=== PATIENT | female | born 2000 | race Caucasian/White ===

== ENCOUNTER → 2018-11-27 14:38 | Outpatient (CLI) | payer BC, SELFPAY ==
[2018-11-27 15:53] LABS: Basophils % 0.6 % (0.1-2.0); Eosinophils # 0.1 K/mm3 (0.0-0.4); Eosinophils % 0.8 % (0.1-12.0); Hematocrit 42.1 % (37.0-47.0); Hemoglobin 14.7 g/dL (12.2-16.2); Lymphocytes % 25.1 % (10-50); Mean Corpuscular HGB Conc 34.8 g/dL (31.8-35.4); Mean Platelet Volume 8.9 fl (7.4-10.4); Monocytes # 0.4 K/mm3 (0.1-1.0); Monocytes % 5.3 % (1.7-9.3); Neutrophils # 5.3 K/mm3 (1.8-7.8); Neutrophils % 68.2 % (37.0-80.0); Platelet Count 282 K/mm3 (142-424); Red Blood Count 4.73 M/mm3 (4.20-5.40); Red Cell Distribution Width 12.6 % (11.5-17.5); White Blood Count 7.8 K/mm3 (4.5-13.0)
[2018-11-29 06:22] LABS: Prolactin 9.4 ng/mL (4.8-23.3)
[2018-11-29 11:02] LABS: Estradiol 47.5 pg/mL (.); FSH 8.8 mIU/mL (.); LH 11.7 mIU/mL (.)
[2018-12-01 14:16] LABS: Testosterone,Free 5.8 pg/mL (0.0-4.2)
== END ==
PROVIDERS: Visit Provider Obstetrics & Gynecology
DX: N91.2 Amenorrhea, unspecified (principal)
CPT/HCPCS: 36415; 82670; 83001; 83002; 84146; 84402; 84443; 85025

== ENCOUNTER → 2018-12-01 14:54 | Outpatient (CLI) | payer OTHER, SELFPAY ==
--- NOTE | 2018-12-01 15:01 | US_ITS ---
US transvaginal HISTORY: ITS.REASON: INFERTILITY ORDERING PHYSICIAN: Fito Leahy MD PATIENT AGE: 18 years Comparison: None FINDINGS: The uterus is 7.4 x 3 x 3.4 cm with a combined endometrial thickness of 7 mm. Uterus is slightly anteverted. No uterine mass is evident. The right ovary is 3 x 2 cm and contains small follicles without dominant cyst. At least 10 follicles are present in one image The left ovary is not well visualized. What appears to represent the left ovary is 1.5 x 1.5 cm and contains 2 small follicles. No cul-de-sac fluid evident. IMPRESSION: 1. Unremarkable. Anteverted uterus. 2. Multiple right ovarian follicles. In the absence of hormonal stimulation, polycystic ovarian disease is considered. Please correlate with appropriate laboratory values. The left ovary is not well demonstrated.
== END ==
PROVIDERS: PCP Family Medicine; Visit Provider Obstetrics & Gynecology
DX: N91.2 Amenorrhea, unspecified (principal)
CPT/HCPCS: 76830

== ENCOUNTER 2019-03-05 16:05 | Emergency (ER) | payer OTHER, MEDICAID, SELFPAY ==
[2019-03-05 16:23] VITALS: BP 174/98; PULSE 101; RESP 20; TEMP 36.7; O2SAT 98; BMI 31.8
[2019-03-05 16:38] VITALS: BP 158/76; PULSE 89; RESP 18; TEMP 36.6; O2SAT 100; BMI 27.8
--- NOTE | 2019-03-05 16:46 | US_ITS ---
US OB transvaginal CLINICAL INDICATION: ITS.REASON: CRAMPING , PT ON CLOMID FOR INFERTILITY, RO ECTOPIC ORDERING PHYSICIAN: Gerald Hutton MD PATIENT AGE: 19 years Comparison: None FINDINGS: There is a need uterine gestational sac with a pole with a crown-rump length of 0.52 cm correlating to gestational age of 6 weeks and 2 days. Heart tones are present with an FHR 1:30 BPM. Yolk sac is visualized. 13 mm right ovarian cyst. No cul-de-sac fluid. Cervix appears closed. IMPRESSION: Live intrauterine gestation at 6 weeks and 2 days. Estimated due date by ultrasound is 10/26/2019
[2019-03-05 16:59] LABS: Basophils # 0.1 K/mm3 (0-0.2); Basophils % 0.8 % (0.1-2.0); Eosinophils % 0.5 % (0.1-12.0); Hematocrit 39.2 % (37.0-47.0); Hemoglobin 13.8 g/dL (12.2-16.2); Lymphocytes # 1.8 K/mm3 (0.7-4.5); Lymphocytes % 23.9 % (10-50); Mean Corpuscular HGB Conc 35.1 g/dL (31.8-35.4); Mean Corpuscular Hemoglobin 30.6 pg (27.0-31.2); Mean Corpuscular Volume 87.2 fl (81-99); Mean Platelet Volume 7.8 fl (7.4-10.4); Monocytes # 0.5 K/mm3 (0.1-1.0); Monocytes % 6.4 % (1.7-9.3); Neutrophils # 5.2 K/mm3 (1.8-7.8); Neutrophils % 68.4 % (37.0-80.0); Platelet Count 274 K/mm3 (142-424); Red Blood Count 4.49 M/mm3 (4.20-5.40); Red Cell Distribution Width 12.4 % (11.5-17.5); White Blood Count 7.6 K/mm3 (4.8-10.8)
--- NOTE | 2019-03-05 17:06 | [facility].EDGENADL ---
ED Disposition Clinical Impression: Normal IUP (intrauterine ) on ultrasound Disposition: Home, Self-Care Condition on Discharge: Good Instructions: DI for Abdominal Pain -- Early Additional Instructions: follow up with dr. scherer Referrals: Provider,Referral, [Primary Care Provider] - Time of Disposition: 18:54 - Critical Care Critical Care Time: No Attestation: On 03/05/19, the high probability of a clinically significant, sudden or life threatening deterioration of the following system(s) required my full and direct attention, intervention and personal management. The time I documented below is in addition to time spent performing reported procedures but includes the following listed in this critical care notation. Medical Decision Making - Medical Records Medical records reviewed: Yes: I reviewed the patient's medical records. - Neymar Inquiry Pt receiving controlled substance: No Neymar was queried for this patient: No Vital Signs: 03/05/19 16:23 03/05/19 16:38 03/05/19 17:34 Temperature 98.1 F 97.8 F Temperature Source Oral Oral Pulse Rate [Right Radial] 101 H 89 91 H Respiratory Rate 20 18 Blood Pressure [Right Arm] 174/98 H 158/76 H 130/79 Blood Pressure Mean [Right Arm] 123 103 96 Blood Pressure Source [Right Arm] Automatic Cuff Automatic Cuff Blood Pressure Position [Right Arm] Sitting Sitting 02 Sat by Pulse Oximetry 98 100 98 Oxygen Delivery Method Room Air Room Air - Lab Data Lab results reviewed: Yes: I reviewed the patient's lab results. Lab Results 03/05/19 16:50: WBC 7.6, RBC 4.49, Hgb 13.8, Hct 39.2, MCV 87.2, MCH 30.6, MCHC 35.1, RDW 12.4, Plt Count 274, MPV 7.8, Neut % (Auto) 68.4, Lymph % (Auto) 23.9, [place] % (Auto) 6.4, Eos % (Auto) 0.5, Baso % (Auto) 0.8, Neut # (Auto) 5.2, Lymph # (Auto) 1.8, [place] # (Auto) 0.5, Eos # (Auto) 0.0, Baso # (Auto) 0.1 03/05/19 16:50: Sodium 139, Potassium 3.6, Chloride 103, Carbon Dioxide 25, Anion Gap 14.6, BUN 7, Creatinine 0.73, Estimated Creat Clear 165, Estimated GFR 101, Est GFR ( Amer) 122, Glucose 96, Calcium 8.7, Total Bilirubin 0.2, AST 12 L, ALT 24, Alkaline Phosphatase 67, Total Protein 7.4, Albumin 3.8, Globulin 3.6 H, Albumin/Globulin Ratio 1.1, HCG, Quant [id number] H 03/05/19 16:50: Serum HCG, Qual Positive Result diagrams: 03/05/19 16:50 03/05/19 16:50 Orders (Tests/Meds): ORDERS Category Date Time Status US OB transvaginal Stat Ultrasound 03/05/19 16:46 Taken General Adult HPI - General Chief complaint: PAIN Stated complaint: and cramping Time Seen by Provider: 03/05/19 17:06 Mode of Arrival: Ambulatory Source of Information: Patient Limitations: No Limitations Description of Symptoms (Recalled from ER Triage Doc. by RN): abd cramping, approx 6 weeks preg after having taken clomid - Related Data Home Medications Medication Instructions Recorded Confirmed norethindrone 1 mg-ethinyl 1 tab PO DAILY 11/27/18 12/08/18 estradiol 20 mcg (21)-iron 75 mg (7) tablet Previous Rx's Medication Instructions Recorded clomiphene citrate 50 mg tablet 50 mg PO DAILY 5 Days #5 tab 12/08/18 Allergies Allergy/AdvReac Type Severity Reaction Status Date / Time No Known Allergies Allergy Unverified 12/08/18 15:36 [facility] History - Hepatitis A Screen Drug use history?: No High risk sexual behaviors?: No History of sexually transmitted infection?: No Currently employed?: No Childcare worker?: No Do you have indoor plumbing?: Yes Do you have electricity?: Yes Attestation statement:: This patient has been screened for Hepatitis A risk factors. I have reviewed the patient's past medical history: Yes Comment: HBP Amputation: No Fractures: No - Social History Smoking Status: Never smoker Alcohol Intake: never Alcohol Intake Frequency:: other Substance Use Type: denies use Occupational Status: unemployed - Psychiatric History Expresses thoughts
[2019-03-05 17:14] LABS: HCG Qualitative, Serum Positive (Negative)
--- NOTE | 2019-03-05 17:16 | ED_ITS ---
ED Disposition Clinical Impression: Normal IUP (intrauterine ) on ultrasound Disposition: Home, Self-Care Condition on Discharge: Good Instructions: DI for Abdominal Pain -- Early Additional Instructions: follow up with dr. scherer Referrals: Provider,Referral, [Primary Care Provider] - Time of Disposition: 18:54 - Critical Care Critical Care Time: No Attestation: On 03/05/19, the high probability of a clinically significant, sudden or life threatening deterioration of the following system(s) required my full and direct attention, intervention and personal management. The time I documented below is in addition to time spent performing reported procedures but includes the following listed in this critical care notation. Medical Decision Making - Medical Records Medical records reviewed: Yes: I reviewed the patient's medical records. - Neymar Inquiry Pt receiving controlled substance: No Neymar was queried for this patient: No Vital Signs: 03/05/19 16:23 03/05/19 16:38 03/05/19 17:34 Temperature 98.1 F 97.8 F Temperature Source Oral Oral Pulse Rate [Right Radial] 101 H 89 91 H Respiratory Rate 20 18 Blood Pressure [Right Arm] 174/98 H 158/76 H 130/79 Blood Pressure Mean [Right Arm] 123 103 96 Blood Pressure Source [Right Arm] Automatic Cuff Automatic Cuff Blood Pressure Position [Right Arm] Sitting Sitting 02 Sat by Pulse Oximetry 98 100 98 Oxygen Delivery Method Room Air Room Air - Lab Data Lab results reviewed: Yes: I reviewed the patient's lab results. Lab Results 03/05/19 16:50: WBC 7.6, RBC 4.49, Hgb 13.8, Hct 39.2, MCV 87.2, MCH 30.6, MCHC 35.1, RDW 12.4, Plt Count 274, MPV 7.8, Neut % (Auto) 68.4, Lymph % (Auto) 23.9, [place] % (Auto) 6.4, Eos % (Auto) 0.5, Baso % (Auto) 0.8, Neut # (Auto) 5.2, Lymph # (Auto) 1.8, [place] # (Auto) 0.5, Eos # (Auto) 0.0, Baso # (Auto) 0.1 03/05/19 16:50: Sodium 139, Potassium 3.6, Chloride 103, Carbon Dioxide 25, Anion Gap 14.6, BUN 7, Creatinine 0.73, Estimated Creat Clear 165, Estimated GFR 101, Est GFR ( Amer) 122, Glucose 96, Calcium 8.7, Total Bilirubin 0.2, AST 12 L, ALT 24, Alkaline Phosphatase 67, Total Protein 7.4, Albumin 3.8, Globulin 3.6 H, Albumin/Globulin Ratio 1.1, HCG, Quant [id number] H 03/05/19 16:50: Serum HCG, Qual Positive Result diagrams: 03/05/19 16:50 03/05/19 16:50 Orders (Tests/Meds): ORDERS Category Date Time Status US OB transvaginal Stat Ultrasound 03/05/19 16:46 Taken General Adult HPI - General Chief complaint: PAIN Stated complaint: and cramping Time Seen by Provider: 03/05/19 17:06 Mode of Arrival: Ambulatory Source of Information: Patient Limitations: No Limitations Description of Symptoms (Recalled from ER Triage Doc. by RN): abd cramping, approx 6 weeks preg after having taken clomid - Related Data Home Medications Medication Instructions Recorded Confirmed norethindrone 1 mg-ethinyl 1 tab PO DAILY 11/27/18 12/08/18 estradiol 20 mcg (21)-iron 75 mg (7) tablet Previous Rx's Medication Instructions Recorded clomiphene citrate 50 mg tablet 50 mg PO DAILY
[2019-03-05 17:34] VITALS: BP 130/79; PULSE 91; O2SAT 98
[2019-03-05 17:35] LABS: Alanine Aminotransferase 24 U/L (12-78); Albumin Level 3.8 gm/dL (3.4-5.0); Albumin/Globulin Ratio 1.1 (1.1-1.8); Alkaline Phosphatase 67 U/L (46-116); Anion Gap 14.6 mEq/L (5-15); Aspartate Amino Transferase 12 U/L (15-37); Bilirubin,Total 0.2 mg/dL (0.2-1.0); Blood Urea Nitrogen 7 mg/dL (7-18); Calcium 8.7 mg/dL (8.5-10.1); Carbon Dioxide 25 mmol/L (21.0-32.0); Chloride 103 mmol/L (98-107); Creatinine Clearance Estimated 165 mL/min (50-200); Creatinine,Serum 0.73 mg/dL (0.55-1.02); Estimated Glomerular Filt Rate 101 ml/min (>60); GFR (African American) 122 ML/MIN (>60); Globulin 3.6 gm/dl (1.3-3.2); Glucose 96 mg/dL (74-106); Potassium 3.6 mmoL/L (3.5-5.1); Sodium 139 mmol/L (136-145); Total Protein,Serum 7.4 gm/dL (6.4-8.2)
[2019-03-05 19:10] VITALS: BP 135/85; PULSE 90; RESP 20; TEMP 37; O2SAT 98
== END 2019-03-05 19:11 | disposition home or self-care (01) ==
LOC: UTC 16:27 → ER 16:33
PROVIDERS: Emergency Provider Emergency Medicine
DX: R10.9 Unspecified abdominal pain (principal); Z34.90 Encounter for supervision of normal pregnancy, unspecified, unspecified trimester
CPT/HCPCS: 36415; 76817; 80053; 84702; 84703; 85025; 99283

== ENCOUNTER → 2019-03-17 15:45 | Outpatient (CLI) | payer BC, MEDICAID, SELFPAY ==
[2019-03-17 16:31] LABS: Amphetamine/Metha Screen,Urine Negative ng/mL (<1000); Barbiturates Screen,Urine Negative ng/mL (<200); Benzodiazepines Screen,Urine Negative ng/mL (<200); Cannabinoid Screen,Urine Negative ng/mL (<50); Cocaine Screen,Urine Negative ng/mL (<300); Methadone Screen,Urine Negative ng/mL (<300); Opiate Screen,Urine Negative ng/mL (<300); Phencyclidine Screen,Urine Negative ng/mL (<25)
[2019-03-17 18:06] LABS: Thyroid Stimulating Hormone 1.33 uIU/ml (0.358-3.740)
[2019-03-20 17:47] LABS: HIV Screen 4th Generation wRfx Non Reactive (Non Reactive); Hepatitis B Surface Antigen Negative (Negative); Hepatitis C Antibody <0.1 s/co ratio (0.0-0.9); Rapid Plasma Reagin Ab Titer Non Reactive (NonRea<1:1); Rubella Antibodies, IgG 1.95 index (Immune >0.99)
== END ==
PROVIDERS: Visit Provider Obstetrics & Gynecology
DX: Z34.90 Encounter for supervision of normal pregnancy, unspecified, unspecified trimester (principal)
CPT/HCPCS: 36415; 80305; 84443; 86592; 86703; 86762; 86850; 87340; 87380; G0432

== ENCOUNTER → 2019-05-19 16:28 | Outpatient (CLI) | payer OTHER, MEDICAID, SELFPAY ==
[2019-05-22 02:16] LABS: AFP Value 36.4 ng/mL (.); DIA MoM 1.04 (.); DIA Value 155.26 pg/mL (.); DSR (Second Trimester) 1 IN 8302 (.); Maternal Age At EDD 21.6 yr (.); OSBR Risk 1 IN 7850 (.); Results Report (.); hCG MoM 0.98 (.); hCG Value 28818 mIU/mL (.); uE3 MoM 1.03 (.)
[2019-05-22 18:03] LABS: Gestat. Age Based On EDD (.)
== END ==
PROVIDERS: Visit Provider Obstetrics & Gynecology
DX: Z34.90 Encounter for supervision of normal pregnancy, unspecified, unspecified trimester (principal)
CPT/HCPCS: 36415; 82106

== ENCOUNTER 2019-07-23 08:50 | Outpatient (CLI) | payer MEDICAID, SELFPAY ==
[2019-07-23 08:59] VITALS: BMI 29.3
[2019-07-23 09:10] VITALS: BP 147/87; PULSE 91; RESP 20; TEMP 36.9; O2SAT 96; BMI 29.3
[2019-07-23 09:49] LABS: Amphetamine/Metha Screen,Urine Negative ng/mL (<1000); Barbiturates Screen,Urine Negative ng/mL (<200); Benzodiazepines Screen,Urine Negative ng/mL (<200); Cannabinoid Screen,Urine Negative ng/mL (<50); Cocaine Screen,Urine Negative ng/mL (<300); Methadone Screen,Urine Negative ng/mL (<300); Opiate Screen,Urine Negative ng/mL (<300); Phencyclidine Screen,Urine Negative ng/mL (<25)
[2019-07-23 10:13] LABS: Appearance,Urine CLEAR (Clear); Blood, Urine Negative (Negative); Color,Urine YELLOW (Yellow); Glucose,Urine (UA) Negative (Negative); Ketones,Urine 2+ (Negative); Leukocyte Esterase,Urine Negative (Negative); Microscopic, Urine URINE MICROSCOPIC (MICROSCOPIC); Nitrate,Urine Negative (Negative); Protein,Urine Negative (Negative); Specific Gravity, Urine 1.025 (1.005-1.030); Urobilinogen,Urine 0.2 EU/dl (0.2)
[2019-07-23 10:21] LABS: Bilirubin,Urine Negative (Negative)
[2019-07-23 10:23] LABS: Bacteria,Urine 2+ /lpf
--- NOTE | 2019-07-23 10:23 | US_ITS ---
PROCEDURE: US OB BIOPHYSICAL PROFILE CLINICAL INDICATION: pt fell down steps this am Patient fell down steps, evaluate viability, abdominal injury with pain TECHNIQUE: Transabdominal images FINDINGS: There is a single live fetus which is in cephalic presentation. heart and body motion noted. Placenta is anterior without previa or abruption. Biophysical profile is 8 of 8. Biometric measurements were not obtained. Heart rate is 153 beats per minute. Qualitative AFV: 2 breathing movements: 2 Gross body movements: 2 Tone: 2 Biophysical profile score: 8 IMPRESSION: Live intrauterine gestation in cephalic presentation with a biophysical profile 8 of 8 Dictated by: Sam Lorenzo MD 07/23/2019 18:30 Electronically signed by Sam Lorenzo MD in [place] 07/23/2019 18:30
== END 2019-07-23 11:25 | disposition home or self-care (01) ==
LOC: OBOUT 08:52 → OB 08:58
PROVIDERS: Visit Provider Obstetrics & Gynecology
DX: O26.892 Other specified pregnancy related conditions, second trimester (principal); Z3A.26 26 weeks gestation of pregnancy; W19.XXXA Unspecified fall, initial encounter
CPT/HCPCS: 59025; 76819; 80305; 81001; 87086

== ENCOUNTER → 2019-08-14 13:22 | Outpatient (CLI) | payer MEDICAID, SELFPAY ==
[2019-08-14 13:49] LABS: Glucose,Fasting 79 mg/dL (60-105)
--- NOTE | 2019-08-14 13:58 | US_ITS ---
PROCEDURE: US OB /MATERNAL DETAIL CLINICAL INDICATION: us ob Complete COMPARISON: US OB BIOPHYSICAL PROFILE from 07/23/2019 FINDINGS: Single viable intrauterine gestation. Cephalic position. Placenta: Anteriorplacenta grade 1. There is average amount fluid. The cervix appears satisfactory. Closed and measuring 3.4 cm in length. Complete survey performed and was unremarkable on the submitted images as in PACS. No discrete anomalies identified on survey imaging by technologist. Active fetus. Three-vessel cord with satisfactory umbilical cord insertion. 4- chamber heart noted. Survey of brain & ventricles Unremarkable. Face and neck survey unremarkable. Diaphragm and chest views unremarkable. Abdomen: Both kidneys noted and unremarkable. Stomach noted and satisfactory. Urinary bladder is slightly prominent. This is nonspecific and could be due to patient's phase of imaging Spine: Survey of the spine satisfactory with no anomalies identified nor imaged. Both arms and legs noted. Amniotic Fluid: Adequate. Maternal adnexa: No significant findings. Measurements: Average ultrasound age 29 weeks 5 days. Gestational Age 29 weeks 3 days Estimated due date by ultrasound age 0110/25/2019. Estimated weight 1,423.2 ggrams. BPD = 29 weeks 5 days OFD = 29 weeks 4 days HC = 29 weeks 4 days AC = 29 weeks 5 days FL = 29 weeks 4 days Growth Percentile= 43% Heart Rate = 176 bpm Cerebellum = Humerus = HC/AC is 1.06 CI is 0.77 FL/BPD is 0.76 FL/AC is 0.22 IMPRESSION: Live IUP at 29 weeks 5 days which is in cephalic presentation. All parameters correlate with no obvious anomalies. Please see above for detail Dictated by: Sam Lorenzo MD 08/14/2019 16:39 Electronically signed by Sam Lorenzo MD in [place] 08/14/2019 16:39
[2019-08-14 14:55] LABS: Basophils % 0.3 % (0.1-2.0); Eosinophils # 0.1 K/mm3 (0.0-0.4); Eosinophils % 0.6 % (0.1-12.0); Hematocrit 40.3 % (37.0-47.0); Hemoglobin 13.7 g/dL (12.2-16.2); Lymphocytes # 1.6 K/mm3 (0.7-4.5); Lymphocytes % 13.9 % (10-50); Mean Corpuscular Hemoglobin 31.7 pg (27.0-31.2); Mean Corpuscular Volume 93.3 fl (81-99); Mean Platelet Volume 8.3 fl (7.4-10.4); Monocytes # 0.5 K/mm3 (0.1-1.0); Monocytes % 4.4 % (1.7-9.3); Neutrophils # 9.3 K/mm3 (1.8-7.8); Neutrophils % 80.9 % (37.0-80.0); Platelet Count 214 K/mm3 (142-424); Red Blood Count 4.32 M/mm3 (4.20-5.40); Red Cell Distribution Width 13.2 % (11.5-17.5); White Blood Count 11.4 K/mm3 (4.8-10.8)
[2019-08-14 15:04] LABS: Glucose 1 Hour 142 mg/dL (74-106)
== END ==
PROVIDERS: Referring Provider Obstetrics & Gynecology; Visit Provider Obstetrics & Gynecology
DX: Z36.0 Encounter for antenatal screening for chromosomal anomalies (principal)
CPT/HCPCS: 36415; 76811; 82951; 85025

== ENCOUNTER 2019-09-21 07:32 | Outpatient (CLI) | payer MEDICAID, SELFPAY ==
[2019-09-21 07:37] VITALS: BP 137/82; PULSE 89; RESP 20; TEMP 36.9; O2SAT 97; BMI 31.0
[2019-09-21 07:52] LABS: Microscopic, Urine URINE MICROSCOPIC (MICROSCOPIC)
[2019-09-21 07:57] LABS: Appearance,Urine CLEAR (Clear); Bilirubin,Urine Negative (Negative); Blood, Urine Negative (Negative); Color,Urine YELLOW (Yellow); Glucose,Urine (UA) Negative (Negative); Ketones,Urine Negative (Negative); Leukocyte Esterase,Urine TRACE (Negative); Nitrate,Urine Negative (Negative); PH,Urine 6.5 (5.0-8.5); Protein,Urine Negative (Negative); Urobilinogen,Urine 0.2 EU/dl (0.2)
[2019-09-21 08:03] LABS: Bacteria,Urine Trace /lpf; RBC,Urine Occasional #/hpf (0-3)
[2019-09-21 08:10] LABS: Amphetamine/Metha Screen,Urine Negative ng/mL (<1000); Barbiturates Screen,Urine Negative ng/mL (<200); Benzodiazepines Screen,Urine Negative ng/mL (<200); Cannabinoid Screen,Urine Negative ng/mL (<50); Cocaine Screen,Urine Negative ng/mL (<300); Methadone Screen,Urine Negative ng/mL (<300); Opiate Screen,Urine Negative ng/mL (<300); Phencyclidine Screen,Urine Negative ng/mL (<25)
== END 2019-09-21 08:35 | disposition home or self-care (01) ==
LOC: OBOUT 07:36 → OB 07:36
PROVIDERS: Obstetrics & Gynecology; Visit Provider Obstetrics & Gynecology
DX: O47.03 False labor before 37 completed weeks of gestation, third trimester (principal); Z3A.34 34 weeks gestation of pregnancy; O36.8190 Decreased fetal movements, unspecified trimester, not applicable or unspecified; R10.2 Pelvic and perineal pain
CPT/HCPCS: 59025; 80305; 81001

== ENCOUNTER 2019-09-28 15:35 | Outpatient (CLI) | payer MEDICAID, SELFPAY ==
[2019-09-28 15:53] VITALS: BP 136/92; PULSE 99; RESP 18; BMI 31.0
[2019-09-28 16:22] LABS: Microscopic, Urine URINE MICROSCOPIC (MICROSCOPIC)
[2019-09-28 16:29] LABS: Appearance,Urine CLEAR (Clear); Bilirubin,Urine Negative (Negative); Blood, Urine Negative (Negative); Color,Urine YELLOW (Yellow); Glucose,Urine (UA) Negative (Negative); Ketones,Urine Negative (Negative); Leukocyte Esterase,Urine Negative (Negative); Nitrate,Urine Negative (Negative); Protein,Urine Negative (Negative); Specific Gravity, Urine 1.025 (1.005-1.030); Urobilinogen,Urine 0.2 EU/dl (0.2)
[2019-09-28 16:37] LABS: Amphetamine/Metha Screen,Urine Negative ng/mL (<1000); Barbiturates Screen,Urine Negative ng/mL (<200); Benzodiazepines Screen,Urine Negative ng/mL (<200); Cannabinoid Screen,Urine Negative ng/mL (<50); Cocaine Screen,Urine Negative ng/mL (<300); Methadone Screen,Urine Negative ng/mL (<300); Opiate Screen,Urine Negative ng/mL (<300); Phencyclidine Screen,Urine Negative ng/mL (<25)
[2019-09-28 16:58] LABS: Bacteria,Urine Trace /lpf; WBC,Urine Occasional #/hpf (0-3)
== END 2019-09-28 16:50 | disposition home or self-care (01) ==
LOC: OBOUT 15:38 → OB 15:39
PROVIDERS: PCP Obstetrics & Gynecology; Visit Provider Obstetrics & Gynecology
DX: O13.3 Gestational [pregnancy-induced] hypertension without significant proteinuria, third trimester; Z3A.35 35 weeks gestation of pregnancy
CPT/HCPCS: 59025; 80305; 81001

== ENCOUNTER 2019-09-30 13:35 | Inpatient (IN) ==
[2019-09-30 14:09] LABS: Microscopic, Urine URINE MICROSCOPIC (MICROSCOPIC)
[2019-09-30 14:20] LABS: Appearance,Urine CLEAR (Clear); Blood, Urine Negative (Negative); Glucose,Urine (UA) Negative (Negative); Ketones,Urine TRACE (Negative); Leukocyte Esterase,Urine TRACE (Negative); Protein,Urine TRACE (Negative)
[2019-09-30 14:23] LABS: Amphetamine/Metha Screen,Urine Negative ng/mL (<1000); Barbiturates Screen,Urine Negative ng/mL (<200); Benzodiazepines Screen,Urine Negative ng/mL (<200); Cannabinoid Screen,Urine Negative ng/mL (<50); Cocaine Screen,Urine Negative ng/mL (<300); Methadone Screen,Urine Negative ng/mL (<300); Opiate Screen,Urine Negative ng/mL (<300); Phencyclidine Screen,Urine Negative ng/mL (<25)
[2019-09-30 14:29] LABS: Bilirubin,Urine Negative (Negative); Color,Urine Dark Yellow (Yellow)
[2019-09-30 14:30] LABS: Bacteria,Urine 2+ /lpf; Hyaline Casts,Urine Occasional #/lpf (0); Mucus,Urine 1+ /lpf
[2019-09-30 15:09] LABS: Basophils % 0.2 % (0.1-2.0); Eosinophils % 0.3 % (0.1-12.0); Hematocrit 40.7 % (37.0-47.0); Lymphocytes # 1.1 K/mm3 (0.7-4.5); Lymphocytes % 8.7 % (10-50); Mean Corpuscular HGB Conc 34.5 g/dL (31.8-35.4); Mean Corpuscular Volume 90.7 fl (81-99); Mean Platelet Volume 9.7 fl (7.4-10.4); Monocytes # 0.6 K/mm3 (0.1-1.0); Neutrophils # 10.6 K/mm3 (1.8-7.8); Neutrophils % 85.8 % (37.0-80.0); Platelet Count 199 K/mm3 (142-424); Red Blood Count 4.49 M/mm3 (4.20-5.40); Red Cell Distribution Width 12.7 % (11.5-17.5); White Blood Count 12.4 K/mm3 (4.8-10.8)
[2019-09-30 15:53] LABS: Lymphocytes % 9 % (10-50); Monocytes % 5 % (2-9); Neutrophils % 86 % (42-76); RBC Morphology Normal; Total Cells Counted 100
--- NOTE | 2019-09-30 18:35 | Progress Note ---
Internal Medicine - PN: Subj *Date: 09/30/19 *Time: 18:32 (This 19-year-old primigravid white female arrived at 36-1/7 weeks in the labor room with spontaneous rupture of membranes (AmniSure positive). Contractions are sporadic and irregular and mild. Cervix is 1 cm, 50%, with a high presenting vertex. The patient is afebrile. Her has been uncomplicated (a Clomid ). The patient states that her bag of water broke approximately 1300 hrs. today. The plan is to observe the patient on IV fluids and intravenous ampicillin (GBS status unknown), and if labor does not ensue, to start intravenous Pitocin at 04 100 tomorrow. Please refer to the patient's complete obstetrical history.) Exam Vital signs and Labs for Last 24 Hours: Temp Pulse Resp BP Pulse Ox 98.2 F 124 H 18 126/80 95 09/30/19 13:45 09/30/19 13:45 09/30/19 13:45 09/30/19 13:45 09/30/19 13:45 Laboratory Results - last 24 hr 09/30/19 13:45: Urine Color Dark yellow, Urine Appearance Clear, Urine pH 8.0, Ur Specific [place] 1.020, Urine Protein Trace, Urine Glucose (UA) Negative, Urine Ketones Trace, Urine Blood Negative, Urine Nitrate Negative, Urine Bilirubin Negative, Urine Urobilinogen 1.0, Ur Leukocyte Esterase Trace, Urine RBC 5-10, Urine WBC 10-20, Ur Squamous Epith Cells 10-20, Urine Bacteria 2+, Hyaline Casts Occasional, Urine Mucus 1+ 09/30/19 13:45: Urine Opiates Screen Negative, Urine Methadone Screen Negative, Ur Barbituates Screen Negative, Ur Phencyclidine Scrn Negative, Ur Amphetamines Screen Negative, U Benzodiazepines Scrn Negative, Urine Cocaine Screen Negative, U Marijuana (THC) Screen Negative 09/30/19 13:55: Membrane Rupture Positive A 09/30/19 14:55: WBC 12.4 H, RBC 4.49, Hgb 14.0, Hct 40.7, MCV 90.7, MCH 31.3 H, MCHC 34.5, RDW 12.7, Plt Count 199, MPV 9.7, Neut % (Auto) 85.8 H, Lymph % (Auto) 8.7 L, [place] % (Auto) 5.0, Eos % (Auto) 0.3, Baso % (Auto) 0.2, Neut # (Auto) 10.6 H, Lymph # (Auto) 1.1, [place] # (Auto) 0.6, Eos # (Auto) 0.0, Baso # (Auto) 0.0, Total Counted 100, Neutrophils % (Manual) 86 H, Lymphocytes % (Manual) 9 L, Monocytes % (Manual) 5, Platelet Estimate Normal, RBC Morphology Normal 09/30/19 14:55: Blood Type B Positive, Antibody Screen Negative I & O for Last 24 hours: Intake & Output 09/28/19 09/29/19 09/30/19 10/01/19 11:59 11:59 11:59 11:59 Weight 204 lb
--- NOTE | 2019-10-01 07:12 | Progress Note ---
Internal Medicine - PN: Subj *Date: 10/01/19 *Time: 07:11 (The patient experienced minimal contractions, and so intravenous Pitocin was begun at approximately 04 100 today. She now has an epidural in situ, and working well. Cervix is now completely effaced, 4 cm, with the presenting vertex at -2 station. Amniotomy revealed clear fluid and an internal monitor has been placed. Vaginal delivery anticipated.) Exam Vital signs and Labs for Last 24 Hours: Temp Pulse Resp BP Pulse Ox 98.2 F 86 16 121/62 99 09/30/19 23:40 09/30/19 23:40 09/30/19 23:40 09/30/19 23:40 09/30/19 23:40 Laboratory Results - last 24 hr 09/30/19 13:45: Urine Color Dark yellow, Urine Appearance Clear, Urine pH 8.0, Ur Specific [place] 1.020, Urine Protein Trace, Urine Glucose (UA) Negative, Urine Ketones Trace, Urine Blood Negative, Urine Nitrate Negative, Urine Bilirubin Negative, Urine Urobilinogen 1.0, Ur Leukocyte Esterase Trace, Urine RBC 5-10, Urine WBC 10-20, Ur Squamous Epith Cells 10-20, Urine Bacteria 2+, Hyaline Casts Occasional, Urine Mucus 1+ 09/30/19 13:45: Urine Opiates Screen Negative, Urine Methadone Screen Negative, Ur Barbituates Screen Negative, Ur Phencyclidine Scrn Negative, Ur Amphetamines Screen Negative, U Benzodiazepines Scrn Negative, Urine Cocaine Screen Negative, U Marijuana (THC) Screen Negative 09/30/19 13:55: Membrane Rupture Positive A 09/30/19 14:55: WBC 12.4 H, RBC 4.49, Hgb 14.0, Hct 40.7, MCV 90.7, MCH 31.3 H, MCHC 34.5, RDW 12.7, Plt Count 199, MPV 9.7, Neut % (Auto) 85.8 H, Lymph % (Auto) 8.7 L, [place] % (Auto) 5.0, Eos % (Auto) 0.3, Baso % (Auto) 0.2, Neut # (Auto) 10.6 H, Lymph # (Auto) 1.1, [place] # (Auto) 0.6, Eos # (Auto) 0.0, Baso # (Auto) 0.0, Total Counted 100, Neutrophils % (Manual) 86 H, Lymphocytes % (Manual) 9 L, Monocytes % (Manual) 5, Platelet Estimate Normal, RBC Morphology Normal 09/30/19 14:55: Blood Type B Positive, Antibody Screen Negative I & O for Last 24 hours: Intake & Output 09/28/19 09/29/19 09/30/19 10/01/19 11:59 11:59 11:59 11:59 Weight 204 lb
--- NOTE | 2019-10-01 09:06 | Progress Note ---
Internal Medicine - PN: Subj *Date: 10/01/19 *Time: 09:05 (The baby had a short run of decelerations, which has now cleared. Amnioinfusion was done. Cervix is now completely effaced, 7 to 8 cm, with the presenting vertex at 0 station.) Exam Vital signs and Labs for Last 24 Hours: Temp Pulse Resp BP Pulse Ox 98.2 F 86 16 121/62 99 09/30/19 23:40 09/30/19 23:40 09/30/19 23:40 09/30/19 23:40 09/30/19 23:40 Laboratory Results - last 24 hr 09/30/19 13:45: Urine Color Dark yellow, Urine Appearance Clear, Urine pH 8.0, Ur Specific [place] 1.020, Urine Protein Trace, Urine Glucose (UA) Negative, Urine Ketones Trace, Urine Blood Negative, Urine Nitrate Negative, Urine Bilirubin Negative, Urine Urobilinogen 1.0, Ur Leukocyte Esterase Trace, Urine RBC 5-10, Urine WBC 10-20, Ur Squamous Epith Cells 10-20, Urine Bacteria 2+, H yaline Casts Occasional, Urine Mucus 1+ 09/30/19 13:45: Urine Opiates Screen Negative, Urine Methadone Screen Negative, Ur Barbituates Screen Negative, Ur Phencyclidine Scrn Negative, Ur Amphetamines Screen Negative, U Benzodiazepines Scrn Negative, Urine Cocaine Screen Negative, U Marijuana (THC) Screen Negative 09/30/19 13:55: Membrane Rupture Positive A 09/30/19 14:55: WBC 12.4 H, RBC 4.49, Hgb 14.0, Hct 40.7, MCV 90.7, MCH 31.3 H, MCHC 34.5, RDW 12.7, Plt Count 199, MPV 9.7, Neut % (Auto) 85.8 H, Lymph % (Auto) 8.7 L, [place] % (Auto) 5.0, Eos % (Auto) 0.3, Baso % (Auto) 0.2, Neut # (Auto) 10.6 H, Lymph # (Auto) 1.1, [place] # (Auto) 0.6, Eos # (Auto) 0.0, Baso # (Auto) 0.0, Total Counted 100, Neutrophils % (Manual) 86 H, Lymphocytes % (Manual) 9 L, Monocytes % (Manual) 5, Platelet Estimate Normal, RBC Morphology Normal 09/30/19 14:55: Blood Type B Positive, Antibody Screen Negative I & O for Last 24 hours: Intake & Output 09/28/19 09/29/19 09/30/19 10/01/19 11:59 11:59 11:59 11:59 Weight 204 lb Microbiology Reports for the Last 24 Hours: Microbiology 09/30/19 13:45 Urine,Clean Catch Urine Culture - Preliminary
--- NOTE | 2019-10-01 10:11 | Progress Note ---
Internal Medicine - PN: Subj *Date: 10/01/19 *Time: 10:11 (Doing well but no change in cervix since last exam.) Exam Vital signs and Labs for Last 24 Hours: Temp Pulse Resp BP Pulse Ox 98.2 F 86 16 121/62 99 09/30/19 23:40 09/30/19 23:40 09/30/19 23:40 09/30/19 23:40 09/30/19 23:40 Laboratory Results - last 24 hr 09/30/19 13:45: Urine Color Dark yellow, Urine Appearance Clear, Urine pH 8.0, Ur Specific [place] 1.020, Urine Protein Trace, Urine Glucose (UA) Negative, Urine Ketones Trace, Urine Blood Negative, Urine Nitrate Negative, Urine Bilirubin Negative, Urine Urobilinogen 1.0, Ur Leukocyte Esterase Trace, Urine RBC 5-10, Urine WBC 10-20, Ur Squamous Epith Cells 10-20, Urine Bacteria 2+, Hyaline Casts Occasional, Urine Mucus 1+ 09/30/19 13:45: Urine Opiates Screen Negative, Urine Methadone Screen Negative, Ur Barbituates Screen Negative, Ur Phencyclidine Scrn Negative, Ur Amphetamines Screen Negative, U Benzodiazepines Scrn Negative, Urine Cocaine Screen Negative, U Marijuana (THC) Screen Negative 09/30/19 13:55: Membrane Rupture Positive A 09/30/19 14:55: WBC 12.4 H, RBC 4.49, Hgb 14.0, Hct 40.7, MCV 90.7, MCH 31.3 H, MCHC 34.5, RDW 12.7, Plt Count 199, MPV 9.7, Neut % (Auto) 85.8 H, Lymph % (Auto) 8.7 L, [place] % (Auto) 5.0, Eos % (Auto) 0.3, Baso % (Auto) 0.2, Neut # (Auto) 10.6 H, Lymph # (Auto) 1.1, [place] # (Auto) 0.6, Eos # (Auto) 0.0, Baso # (Auto) 0.0, Total Counted 100, Neutrophils % (Manual) 86 H, Lymphocytes % (Manual) 9 L, Monocytes % (Manual) 5, Platelet Estimate Normal, RBC Morphology Normal 09/30/19 14:55: Blood Type B Positive, Antibody Screen Negative I & O for Last 24 hours: Intake & Output 09/28/19 09/29/19 09/30/19 10/01/19 11:59 11:59 11:59 11:59 Weight 204 lb Microbiology Reports for the Last 24 Hours: Microbiology 09/30/19 13:45 Urine,Clean Catch Urine Culture - Preliminary
--- NOTE | 2019-10-01 12:34 | Progress Note ---
Internal Medicine - PN: Subj *Date: 10/01/19 *Time: 12:34 (Cervix now completely effaced, 9 cm, vertex at +1 station.) Exam Vital signs and Labs for Last 24 Hours: Temp Pulse Resp BP Pulse Ox 98.2 F 86 16 121/62 99 09/30/19 23:40 09/30/19 23:40 09/30/19 23:40 09/30/19 23:40 09/30/19 23:40 Laboratory Results - last 24 hr 09/30/19 13:45: Urine Color Dark yellow, Urine Appearance Clear, Urine pH 8.0, Ur Specific [place] 1.020, Urine Protein Trace, Urine Glucose (UA) Negative, Urine Ketones Trace, Urine Blood Negative, Urine Nitrate Negative, Urine Bilirubin Negative, Urine Urobilinogen 1.0, Ur Leukocyte Esterase Trace, Urine RBC 5-10, Urine WBC 10-20, Ur Squamous Epith Cells 10-20, Urine Bacteria 2+, Hyaline Casts Occasional, Urine Mucus 1+ 09/30/19 13:45: Urine Opiates Screen Negative, Urine Methadone Screen Negative, Ur Barbituates Screen Negative, Ur Phencyclidine Scrn Negative, Ur Amphetamines Screen Negative, U Benzodiazepines Scrn Negative, Urine Cocaine Screen Negative, U Marijuana (THC) Screen Negative 09/30/19 13:55: Membrane Rupture Positive A 09/30/19 14:55: WBC 12.4 H, RBC 4.49, Hgb 14.0, Hct 40.7, MCV 90.7, MCH 31.3 H, MCHC 34.5, RDW 12.7, Plt Count 199, MPV 9.7, Neut % (Auto) 85.8 H, Lymph % (Auto) 8.7 L, [place] % (Auto) 5.0, Eos % (Auto) 0.3, Baso % (Auto) 0.2, Neut # (Auto) 10.6 H, Lymph # (Auto) 1.1, [place] # (Auto) 0.6, Eos # (Auto) 0.0, Baso # (Auto) 0.0, Total Counted 100, Neutrophils % (Manual) 86 H, Lymphocytes % (Manual) 9 L, Monocytes % (Manual) 5, Platelet Estimate Normal, RBC Morphology Normal 09/30/19 14:55: Blood Type B Positive, Antibody Screen Negative I & O for Last 24 hours: Intake & Output 09/29/19 09/30/19 10/01/19 10/02/19 11:59 11:59 11:59 11:59 Weight 204 lb Microbiology Reports for the Last 24 Hours: Microbiology 09/30/19 13:45 Urine,Clean Catch Urine Culture - Preliminary
--- NOTE | 2019-10-01 13:48 | Progress Note ---
Internal Medicine - PN: Subj *Date: 10/01/19 *Time: 13:47 (Cervix now complete, complete, +2. Pushing.) Exam Vital signs and Labs for Last 24 Hours: Temp Pulse Resp BP Pulse Ox 98.2 F 86 16 121/62 99 09/30/19 23:40 09/30/19 23:40 09/30/19 23:40 09/30/19 23:40 09/30/19 23:40 Laboratory Results - last 24 hr 09/30/19 13:45: Urine Color Dark yellow, Urine Appearance Clear, Urine pH 8.0, Ur Specific [place] 1.020, Urine Protein Trace, Urine Glucose (UA) Negative, Urine Ketones Trace, Urine Blood Negative, Urine Nitrate Negative, Urine Bilirubin Negative, Urine Urobilinogen 1.0, Ur Leukocyte Esterase Trace, Urine RBC 5-10, Urine WBC 10-20, Ur Squamous Epith Cells 10-20, Urine Bacteria 2+, Hyaline Casts Occasional, Urine Mucus 1+ 09/30/19 13:45: Urine Opiates Screen Negative, Urine Methadone Screen Negative, Ur Barbituates Screen Negative, Ur Phencyclidine Scrn Negative, Ur Amphetamines Screen Negative, U Benzodiazepines Scrn Negative, Urine Cocaine Screen Negative, U Marijuana (THC) Screen Negative 09/30/19 13:55: Membrane Rupture Positive A 09/30/19 14:55: WBC 12.4 H, RBC 4.49, Hgb 14.0, Hct 40.7, MCV 90.7, MCH 31.3 H, MCHC 34.5, RDW 12.7, Plt Count 199, MPV 9.7, Neut % (Auto) 85.8 H, Lymph % (Auto) 8.7 L, [place] % (Auto) 5.0, Eos % (Auto) 0.3, Baso % (Auto) 0.2, Neut # (Auto) 10.6 H, Lymph # (Auto) 1.1, [place] # (Auto) 0.6, Eos # (Auto) 0.0, Baso # (Auto) 0.0, Total Counted 100, Neutrophils % (Manual) 86 H, Lymphocytes % (Manual) 9 L, Monocytes % (Manual) 5, Platelet Estimate Normal, RBC Morphology Normal 09/30/19 14:55: Blood Type B Positive, Antibody Screen Negative I & O for Last 24 hours: Intake & Output 09/29/19 09/30/19 10/01/19 10/02/19 11:59 11:59 11:59 11:59 Weight 204 lb Microbiology Reports for the Last 24 Hours: Microbiology 09/30/19 13:45 Urine,Clean Catch Urine Culture - Preliminary
--- NOTE | 2019-10-01 14:16 | Procedure Note ---
- Delivery Note Delivery Date:: 10/01/19 Delivery Time:: 14:01 Anesthesia Type: Epidural Was labor medically induced?: Yes Induction method: per pitocin protocol Gestational age (weeks): 36 delivered prior to 39 weeks?: Yes Justification for early elective delivery:: Infection Amniotic Cavity (Premature rupture of membranes without labor. Delivery indicated to prevent chorioamnionitis.) Infant Gender: Female at 1 minute: 7 at 5 minutes: 8 Suction Catheter Type: [place] AF:: Clear Delivery Procedure:: This 19-year-old 1, now para 1, Ab0 white female was admitted at 36-1/7 weeks with spontaneous rupture of membranes yesterday. She was not in labor. The was a result of clomiphene treatment for anovulation. The patient was begun on intravenous antibiotics (group B strep status unknown) and was observed overnight. Labor did not ensue, after which intravenous Pitocin was begun per protocol. The patient labored under labor epidural, which worked well. She went steadily to completion and delivered spontaneously, without an episiotomy, at 1401 on 10/01/2019. There was no nuchal cord, nor was there any meconium. The baby's nasal and oropharynx were bulb suction, and the baby cried spontaneously on the perineum, as was delivered. The cord was clamped and cut, 3 vessels were noted to be within the cord, and cord blood was obtained. The cord pH was 7.35. The baby was handed into the arms of the attending RN, who assigned Apgars of 7 at 1 minute and 8 at 5 minutes to this female (weight in length undetermined at this time), born at 1401. The placenta delivered spontaneously, intact, at 1404, making the total time in labor 10 hours 4 minutes. The uterus was inspected and was felt to be clean, and was involuting well, with IV Pitocin running. There were no lacerations. The rectovaginal septum was intact at the close of the procedure. The sponge and needle count was correct. The estimated blood loss was 350 cc. The patient tolerated the procedure well, and was recovered in excellent condition. Her blood type is B+. Her rubella titer is immune. She plans to bottlefeed. Placental Delivery Description: Spontaneous (Intact)
[2019-10-02 06:53] LABS: Hemoglobin 12.1 g/dL (12.2-16.2)
--- NOTE | 2019-10-02 08:52 | Progress Note ---
Internal Medicine - PN: Subj *Date: 10/02/19 *Time: 08:52 (This is day #1. The patient is afebrile. Vital signs stable. Lochia normal. Uterine fundus involuting well. Bottlefeeding. ED globin 12.1 g. Impression: Stable.) Exam Vital signs and Labs for Last 24 Hours: Temp Pulse Resp BP Pulse Ox 97.5 F L 83 18 129/67 96 10/02/19 07:53 10/02/19 07:53 10/02/19 07:53 10/02/19 07:53 10/02/19 07:53 Laboratory Results - last 24 hr 10/01/19 14:11: Cord ABG pH 7.35 10/02/19 06:03: Hgb 12.1 L, Hct 36.0 L I & O for Last 24 hours: Intake & Output 09/29/19 09/30/19 10/01/19 10/02/19 11:59 11:59 11:59 11:59 Weight 204 lb Microbiology Reports for the Last 24 Hours: Microbiology 09/30/19 13:45 Urine,Clean Catch Urine Culture - Preliminary
[2019-10-02 16:39] VITALS: BP 129/85
--- NOTE | 2019-10-03 10:14 | Discharge Summary ---
General - General Admission date:: 09/30/19 Discharge date: 10/03/19 HPI HPI: She is a 19-year-old 1 now para 0 who was 36 and 1 weeks gestational age. She came in with ruptured membranes. Hospital Course Hospital Course: She progressed under labor epidural to full dilation and delivered spontaneously a liveborn female child at 2:01 PM in the afternoon of October 01, 2019. The baby weighed 5 pounds 14 ounces and was 19 inches long. She had Apgars of 7 at 1 minute and 8 at 5 minutes. She has done well and has remained afebrile throughout her hospitalization. She is eating and drinking and ambulating. She is bottlefeeding. She has B Rh+ blood and was group B streptococcus unknown. She is rubella immune.. She is discharged home to follow-up with Dr. Allan in approximately 2 weeks time. She will continue with her vitamins and iron. She is taking [id number] analgesics. She was given the usual instructions with respect to limiting her activity, driving and sexual activity. Her condition on discharge is stable. Rhogam Administration: Not Indicated Objective Vital signs: Temp Pulse Resp BP Pulse Ox 97.8 F 77 18 129/85 97 10/02/19 16:26 10/02/19 16:26 10/02/19 16:26 10/02/19 16:26 10/02/19 16:26 no acute distress DS: Diagnosis - Discharge Diagnosis (1) delivery, delivered Status: Acute Discharge Plan - Patient Discharge Instructions ACTIVITY: No heavy lifting DIET: continue same diet Additional Instructions: No heavy lifting, no strenuous activity, nothing in the vagina for 6 weeks. Patient Instructions: Depression, Hemorrhage, [facility] Post Discharge Instructions - Follow up Plan Follow up with: Gina Allan MD [Primary Care Provider] - Disposition: Home, Self-Fci Medications: Home Medications Medication Instructions Recorded Confirmed Type Vit Calc,Iron,Folic [Kpn] 1 tab PO DAILY 09/30/19 09/30/19 History Prescriptions/Medication Reconciliation: Continued Vit Calc,Iron,Folic [Kpn] 1 tab PO DAILY - Problem Reconciliation Problems Reviewed?: Yes
== END 2019-10-03 11:00 | disposition home or self-care (01) | DRG 807 ==
LOC: OBOUT 13:35 → OB 13:38
PROVIDERS: ADMIT Obstetrics & Gynecology; ATTEND Obstetrics & Gynecology
CPT/HCPCS: 36415; 59025; 80305; 81001; 82800; 84112; 85007; 85014; 85018; 85025; 86850; 87086; 96360; C1758; J0290

== ENCOUNTER → 2020-02-09 10:17 | Outpatient (CLI) | payer OTHER, SELFPAY ==
[2020-02-09 12:00] LABS: HCG,Quantitative 36605 mIU/ml (0-5.42)
== END ==
PROVIDERS: Visit Provider Obstetrics & Gynecology
DX: Z32.00 Encounter for pregnancy test, result unknown (principal)
CPT/HCPCS: 36415; 84702

== ENCOUNTER → 2020-02-17 10:08 | Outpatient (CLI) | payer OTHER, SELFPAY ==
--- NOTE | 2020-02-17 10:08 | US_ITS ---
PROCEDURE: US OB TRANSVAGINAL CLINICAL INDICATION: ultrasound OB for dates Left lower quadrant pain COMPARISON: US OB /MATERNAL DETAIL from 08/14/2019 FINDINGS: An intrauterine gestational sac is present with a pole with a crown-rump length of 1.26cm correlating to gestational age of 7weeks 4days. heart tones are present with an FHR of 143bpm. Yolk sac is noted. IMPRESSION: Live IUP at 7 weeks 4 days. Estimated due date by Ultrasound is 10/01/2020 Dictated by: Sam Lorenzo MD 02/17/2020 12:10 Electronically signed by Sam Lorenzo MD in [place] 02/17/2020 12:10
== END ==
PROVIDERS: PCP Surgery; Visit Provider Obstetrics & Gynecology
DX: Z34.90 Encounter for supervision of normal pregnancy, unspecified, unspecified trimester (principal)
CPT/HCPCS: 36415; 76817; 85025; 86592; 86703; 86762; 86850; 87340; 87380; G0432

== ENCOUNTER → 2020-02-17 11:42 | Outpatient (CLI) | payer OTHER, SELFPAY ==
[2020-02-17 12:40] LABS: Basophils % 0.6 % (0.1-2.0); Eosinophils % 0.7 % (0.1-12.0); Hematocrit 44.4 % (37.0-47.0); Hemoglobin 14.9 g/dL (12.2-16.2); Lymphocytes # 1.5 K/mm3 (0.7-4.5); Lymphocytes % 25.1 % (10-50); Mean Corpuscular HGB Conc 33.6 g/dL (31.8-35.4); Mean Corpuscular Hemoglobin 30.2 pg (27.0-31.2); Mean Corpuscular Volume 89.9 fl (81-99); Mean Platelet Volume 7.9 fl (7.4-10.4); Monocytes # 0.4 K/mm3 (0.1-1.0); Monocytes % 6.2 % (1.7-9.3); Neutrophils % 67.3 % (37.0-80.0); Platelet Count 262 K/mm3 (142-424); Red Blood Count 4.94 M/mm3 (4.20-5.40); Red Cell Distribution Width 13.1 % (11.5-17.5)
[2020-02-18 11:15] LABS: HIV Screen 4th Generation wRfx Non Reactive (Non Reactive)
[2020-02-18 11:16] LABS: Hepatitis B Surface Antigen Negative (Negative); Hepatitis C Antibody <0.1 s/co ratio (0.0-0.9); Rapid Plasma Reagin Ab Titer Non Reactive (NonRea<1:1)
== END ==
PROVIDERS: Visit Provider Obstetrics & Gynecology
DX: Z34.90 Encounter for supervision of normal pregnancy, unspecified, unspecified trimester (principal)
CPT/HCPCS: 36415; 85025; 86592; 86703; 86762; 86850; 87340; 87380; G0432

== ENCOUNTER → 2020-02-23 14:18 | Outpatient (CLI) | payer OTHER, SELFPAY ==
[2020-02-23 17:06] LABS: Amphetamine/Metha Screen,Urine Negative ng/ml (<1000); Benzodiazepines Screen,Urine Negative ng/ml (<200)
[2020-02-23 17:07] LABS: Barbiturates Screen,Urine Negative ng/ml (<200); Cannabinoid Screen,Urine Negative ng/ml (<50)
[2020-02-23 17:08] LABS: Cocaine Screen,Urine Negative ng/ml (<300)
[2020-02-23 17:09] LABS: Methadone Screen,Urine Negative ng/ml (<300); Opiate Screen,Urine Negative ng/ml (<300)
[2020-02-23 17:10] LABS: Phencyclidine Screen,Urine Negative ng/ml (<25)
== END ==
PROVIDERS: Visit Provider Obstetrics & Gynecology
DX: Z34.90 Encounter for supervision of normal pregnancy, unspecified, unspecified trimester (principal)
CPT/HCPCS: 80305

== ENCOUNTER → 2020-05-20 12:58 | Outpatient (CLI) | payer OTHER, SELFPAY ==
--- NOTE | 2020-05-20 12:58 | US_ITS ---
PROCEDURE: US OB /MATERNAL DETAIL CLINICAL INDICATION: US OB Complete Anatomy exam COMPARISON: US US OB TRANSVAGINAL from 02/17/2020 FINDINGS: There is a single live fetus which is in cephalic presentation. The placenta is posterior and grade 1 without previa or abruption. The cervix is closed and measures 4 cm transabdominal. Complete survey performed and was unremarkable on the submitted images as in PACS. No discrete anomalies identified on survey imaging by technologist. Active fetus. Three-vessel cord with satisfactory umbilical cord insertion. 4- chamber heart noted. Survey of brain & ventricles Unremarkable. Face and neck survey unremarkable. Diaphragm and chest views unremarkable. Abdomen: Both kidneys noted and unremarkable. Stomach noted and satisfactory. Spine: Survey of the spine satisfactory with no anomalies identified nor imaged. Both arms and legs noted. Amniotic Fluid: Adequate. Maternal adnexa: No significant findings. Measurements: Average ultrasound age 20weeks 5days. Gestational Age 20weeks 6days Estimated due date by ultrasound age 1210/02/2020. Estimated weight 374g BPD = 20weeks 5days OFD = 21weeks 3days HC = 20weeks 3days AC = 20weeks 6days FL = 20weeks 6days Growth Percentile= 38Percent% Heart Rate = 160bpm Cerebellum = 20weeks 6days Humerus = 21weeks HC/AC is 1.15 CI is 0.76 FL/BPD is 0.71 FL/AC is 0.22 IMPRESSION: Live IUP in cephalic presentation with an average ultrasound age of 20 weeks days. No obvious anomalies. Please see above for detail Dictated by: Sam Lorenzo MD 05/21/2020 07:45 Sam Lorenzo MD in [facility] 05/21/2020 07:45
== END ==
PROVIDERS: PCP Family Medicine; Visit Provider Obstetrics & Gynecology
DX: Z36.0 Encounter for antenatal screening for chromosomal anomalies (principal)
CPT/HCPCS: 76811

== ENCOUNTER → 2020-06-29 13:01 | Outpatient (CLI) | payer OTHER, SELFPAY ==
[2020-06-29 14:54] LABS: Glucose 1 Hour 159 mg/dL (74-100)
== END ==
PROVIDERS: Visit Provider Obstetrics & Gynecology
DX: Z34.90 Encounter for supervision of normal pregnancy, unspecified, unspecified trimester (principal)
CPT/HCPCS: 36415; 82947

== ENCOUNTER → 2020-07-05 11:12 | Outpatient (CLI) | payer OTHER, SELFPAY ==
[2020-07-05 11:38] LABS: Glucose,Fasting 88 mg/dl (74-100)
[2020-07-05 13:48] LABS: Glucose 1 Hour 167 mg/dL (74-100)
[2020-07-05 14:21] LABS: Glucose 2 Hour 155 mg/dL (74-100)
[2020-07-05 14:56] LABS: Glucose 3 Hour 118 mg/dL (74-100)
== END ==
PROVIDERS: Visit Provider Obstetrics & Gynecology
DX: R73.09 Other abnormal glucose (principal); Z34.90 Encounter for supervision of normal pregnancy, unspecified, unspecified trimester
CPT/HCPCS: 36415; 82951

== ENCOUNTER → 2020-08-23 12:59 | Outpatient (CLI) | payer OTHER, SELFPAY ==
--- NOTE | 2020-08-23 12:59 | US_ITS ---
PROCEDURE: US OB FOLLOW UP CLINICAL INDICATION: Growth and SAGE ONLY FINDINGS: The following parameters are obtained: Average ultrasound age is Average 34weeks 2days Estimated due date by ultrasound is 10/02/2020. Estimated weight is 2,391g. BPD: 34weeks 3days OFD: 34weeks 2days HC: 34weeks AC: 34weeks 2days FL: 34weeks 3days heart rate: 150bpm bpm. HC/AC: 1.01 Cephalic index: 0.79 FL/BPD: 0.78 FL/AC: 0.22 Amniotic fluid index: 12.68cm The femur length is 34weeks 3days There is a single live fetus which is in cephalic presentation. heart and body motion is noted. The cervix is closed and measures 3 cm. The SAGE is 13 cm which is within normal limits. Estimated weight is 2391 g which is 40th percentile. All parameters correlate. The placenta is posterior and grade 2 IMPRESSION: Live IUP at 34 weeks 2 days with an estimated weight of 2391 g which is 40th percentile SAGE is normal at 13 cm Dictated by: Sam Lorenzo MD 08/24/2020 13:46 Sam Lorenzo MD in [facility] 08/24/2020 13:46
== END ==
PROVIDERS: PCP Family Medicine; Visit Provider Obstetrics & Gynecology
DX: O36.5990 Maternal care for other known or suspected poor fetal growth, unspecified trimester, not applicable or unspecified (principal)
CPT/HCPCS: 76816

== ENCOUNTER → 2020-09-06 16:44 | Outpatient (CLI) | payer OTHER, SELFPAY | PROVIDERS: Visit Provider Obstetrics & Gynecology | DX: Z34.90 Encounter for supervision of normal pregnancy, unspecified, unspecified trimester (principal) | CPT/HCPCS: 86403 ==

== ENCOUNTER 2020-09-21 15:58 | Inpatient (IN) | payer OTHER, SELFPAY ==
[2020-09-21 16:08] VITALS: BMI 33.1
[2020-09-21 16:30] VITALS: BP 130/74; PULSE 100; RESP 20; TEMP 37.1; O2SAT 97; BMI 33.1
[2020-09-21 16:39] LABS: Microscopic, Urine URINE MICROSCOPIC (MICROSCOPIC)
[2020-09-21 16:40] LABS: Basophils % 0.4 % (0.1-2.0); Eosinophils # 0.1 K/mm3 (0.0-0.4); Eosinophils % 0.6 % (0.1-12.0); Hematocrit 40.8 % (37.0-47.0); Hemoglobin 14.2 g/dL (12.2-16.2); Lymphocytes # 1.7 K/mm3 (0.7-4.5); Lymphocytes % 18.9 % (10-50); Mean Corpuscular HGB Conc 34.8 g/dL (31.8-35.4); Mean Corpuscular Hemoglobin 31.2 pg (27.0-31.2); Mean Corpuscular Volume 89.6 fl (81-99); Monocytes # 0.5 K/mm3 (0.1-1.0); Monocytes % 5.1 % (1.7-9.3); Neutrophils # 6.9 K/mm3 (1.8-7.8); Neutrophils % 75.1 % (37.0-80.0); Platelet Count 236 K/mm3 (142-424); Red Blood Count 4.55 M/mm3 (4.20-5.40); Red Cell Distribution Width 13.7 % (11.5-17.5); White Blood Count 9.2 K/mm3 (4.8-10.8)
[2020-09-21 16:58] LABS: Barbiturates Screen,Urine Negative ng/ml (<200)
[2020-09-21 16:59] LABS: Benzodiazepines Screen,Urine Negative ng/ml (<200)
[2020-09-21 17:00] LABS: Amphetamine/Metha Screen,Urine Negative ng/ml (<1000); Methadone Screen,Urine Negative ng/ml (<300)
[2020-09-21 17:01] LABS: Cannabinoid Screen,Urine Negative ng/ml (<50); Cocaine Screen,Urine Negative ng/ml (<300)
[2020-09-21 17:02] LABS: Opiate Screen,Urine Negative ng/ml (<300)
[2020-09-21 17:03] LABS: Phencyclidine Screen,Urine Negative ng/ml (<25)
[2020-09-21 17:26] LABS: Bacteria,Urine 2+ /lpf; WBC,Urine Occasional #/hpf (0-3)
[2020-09-21 17:38] LABS: Coronavirus 19 IgG Antibody Negative (Negative); Coronavirus 19 IgM Antibody Negative (Negative)
[2020-09-21 19:06] LABS: Appearance,Urine CLEAR (Clear); Blood, Urine 1+ (Negative); Color,Urine YELLOW (Yellow); Glucose,Urine (UA) Negative (Negative); Ketones,Urine 2+ (Negative); Leukocyte Esterase,Urine Negative (Negative); Nitrate,Urine Negative (Negative); Protein,Urine Negative (Negative); Specific Gravity, Urine 1.025 (1.005-1.030); Urobilinogen,Urine 0.2 EU/dl (0.2)
[2020-09-21 19:21] LABS: Bilirubin,Urine Negative (Negative)
[2020-09-22 04:07] VITALS: BP 132/82; PULSE 79; RESP 18; TEMP 36.6; O2SAT 98
[2020-09-22 07:59] VITALS: BP 129/88; PULSE 76; RESP 18; TEMP 36.4; O2SAT 96
--- NOTE | 2020-09-22 08:48 | HMH.OBAPHP ---
OB - H&P: HPI Antepartum - History of Present Illness Chief complaint: Induction of labor History of present illness: 20 yo @ 38 02/10 scheduled induction of labor due to gestational hypertension BP in office 150/100 Irregular contractions No leakage of fluid or vaginal bleeding Normal movement and reassuring nonstress test Cervical exam at last appointment , so she was brought in for cervical ripening with prostaglandins the evening before induction - History of Present care: good care Obstetrical complications: gestational hypertension Medical complications: none [facility] History I have reviewed the patient's past medical history: Yes Medical History: Denies:: Cancer, Diabetes Mellitus Type 1, Diabetes Mellitus Type 2, MRSA, Seizures *Have you ever received a pneumonia vaccine?: No *Have you received a flu vaccine this season?: No Other Medical History: Denies: Blood Transfusion Reaction Other Surgeries: Yes: No Previous Surgery, Cholecystectomy. No: Amputation: No Fractures: No - *Social History Last grade of school completed: High school graduate Smoking Status: Former smoker Alcohol Intake: never Alcohol Intake Frequency:: other Substance Use Type: denies use *Occupational Status:: unemployed Housing: house Household Members: spouse *Travel in the last 8 weeks: None Family Hx:: No significant family history Para: 1 Review of Systems - Review of Systems Review of systems:: pertinent systems reviewed and negative unless documented below - Eyes Denies blurry vision, Denies floaters - *Genitourinary Reports other, Denies abnormal vaginal bleeding Comments: irregular contractions - *Neurologic Denies headache(s) Meds Home Medications Medication Instructions Recorded Confirmed Type No Known Home Medications 09/22/20 09/22/20 History Allergies Allergy/AdvReac Type Severity Reaction Status Date / Time No Known Allergies Allergy Verified 09/20/20 14:23 OB - H&P: Exam - Physical Exam Vital signs: Temp Pulse Resp BP Pulse Ox 97.5 F L 76 18 129/88 96 09/22/20 07:59 09/22/20 07:59 09/22/20 07:59 09/22/20 07:59 09/22/20 07:59 - Constitutional no acute distress - Routine HEENT Exam Head: Present: normocephalic, atraumatic Eye: Absent: conjunctival icterus ENT: Present: mucous membranes moist - Routine Neck Exam Present: supple - Routine Respiratory Exam Present: CTA bilaterally. Absent: respiratory distress - Routine Cardiovascular Exam Present: RRR - Routine Abdominal Exam Present: soft. Absent: tenderness, distended - Routine Exam External: Absent: erythema, swelling Perineal: Absent: tenderness - Routine Extremities Exam Present: edema (1+) - Routine Back/Spine/Pelvis Exam Back/Spine: Absent: CVA tenderness - Routine Skin Exam Absent: rash - Routine Neurological Exam Present: alert, oriented X3 - Routine Psychiatric Exam Present: normal affect OB - Results - Labs Labs: Short CBC 09/21/20 Range/Units 16:30 WBC 9.2 (4.8-10.8) K/mm3 Hgb 14.2 (12.2-16.2) g/dL Hct 40.8 (37.0-47.0) % Plt Count 236 (142-424) K/mm3 Urine 09/21/20 Range/Units 16:15 Urine Color Yellow (Yellow) Urine Appearance Clear (Clear) Urine pH 6.0 (5.0-8.5) Ur Specific [place] 1.025 (1.005-1.030) Urine Protein Negative (Negative) Urine Glucose (UA) Negative (Negative) OB - A/P Antepartum (1) 38 weeks gestation of Status: Acute (2) Gestational hypertension Status: Acute (3) Short interval between pregnancies affecting , antepartum Status: Acute - Additional Plan Additional Information:: s/p cervical ripening with cervidil Pitocin augmentation started and will continue continuous monitoring epidural at patient request
[2020-09-22 12:00] VITALS: BP 116/62; PULSE 76; RESP 20; TEMP 36.9; O2SAT 96
--- NOTE | 2020-09-22 13:14 | HMH.DN ---
- Delivery Note Delivery Date:: 09/22/20 Delivery Time:: 11:25 Anesthesia Type: Epidural Was labor medically induced?: Yes Induction method: per pitocin protocol Infant delivered prior to 39 weeks?: Yes Justification for early elective delivery:: Gestational Hypertension Gender: Male at 1 minute: 8 at 5 minutes: 9 Delivery Procedure:: Spontaneous vaginal delivery of liveborn male over intact perineum. Delivery uncomplicated No nuchal cord or shoulder dystocia with delivery Infant placed in [place] with mother immediately after umbilical cord clamped/cut, with standard nursing assessment performed Infant Apgars: 8 & 9 Placenta spontaneously expressed and examined; noted to be complete/intact. Vulva, vagina, and cervix inspected; 2nd degree perineal laceration repaired with 2-0 vicryl in layers EBL: 300 cc All sponge/needle/instrument counts correct at conclusion of procedure Disposition: Mom/baby stable to recovery in [facility]P Laceration:: vaginal Placental Delivery Description: Spontaneous
--- NOTE | 2020-09-22 13:30 | P.PN_ITS ---
[facility] Anesthesia Checklist - Patient Identification Patient Identification: Arm Band, Verbal (Name & ) - Structural Data Admitted From: Home Planned Operative Procedure/s: Labor Epidural Consent for Planned Operative Procedure(s) Verified: Yes Verified Documents: Surgical Consent, History and Physical - Chart Verification Results Verified: CBC, BMP, UA (UDS) - Additional verifications Patient : Yes Anesthesia Reactions: No Hx Blood Transfusions: No Blood Transfusion Reaction: No - Airway Assessment C-Spine Mobility Assessed: Yes TMJ Mobility Assessed: Yes Dentition: Good Dentition - Neurological Assessment Level of Consciousness: Awake, Alert, Appropriate, Follows Commands Hx Seizures: No Numbness or tingling in extremities: No - Anesthesia Plan Anesthesia Risk discussed: Yes Anesthesia Plan: Verified ASA Class: II Anesthesia Type: Epidural [facility] History I have reviewed the patient's past medical history: Yes Medical History: Denies:: Cancer, Diabetes Mellitus Type 1, Diabetes Mellitus Type 2, MRSA, Seizures *Have you ever received a pneumonia vaccine?: No *Have you received a flu vaccine this season?: No Other Medical History: Denies: Blood Transfusion Reaction Anesthesia experience/problems:: None Other Surgeries: Yes: Cholecystectomy. No: Amputation: No Fractures: No - *Social History Last grade of school completed: High school graduate Smoking Status: Former smoker Alcohol Intake: never Alcohol Intake Frequency:: other Substance Use Type: denies use *Occupational Status:: unemployed Housing: house Household Members: spouse *Travel in the last 8 weeks: None Family Hx:: No significant family history Para: 1
[2020-09-22 16:00] VITALS: BP 112/72; PULSE 74; RESP 18; TEMP 36.7; O2SAT 96
[2020-09-22 19:48] VITALS: BP 143/74; PULSE 66; RESP 18; TEMP 37.2; O2SAT 98
[2020-09-23 06:45] LABS: Hematocrit 40.5 % (37.0-47.0); Hemoglobin 13.7 g/dL (12.2-16.2)
--- NOTE | 2020-09-23 14:48 | HMH.DCSUM ---
General - General Admission date:: 09/21/20 Discharge date: 09/23/20 HPI HPI: PPD #1 Ambulating and voiding without difficulty Tolerating regular diet Infant failed cardiac screening test and will require transfer to Mother requesting discharge as well Declines Rx for pain medication at time of discharge Objective Vital signs: Temp Pulse Resp BP Pulse Ox 98.9 F 66 18 143/74 H 98 09/22/20 19:48 09/22/20 19:48 09/22/20 19:48 09/22/20 19:48 09/22/20 19:48 Narrative: CONSTITUTIONAL: no acute distress HEENT: mucous membranes moist PULMONARY: breathing unlabored without audible wheezes CV: no tachycardia or visible JVD; normal LE peripheral pulses ABD: soft, NT/ND, no guarding : fundus firm at/below umbilicus SKIN: no visible rash or lesions EXT: 1+ edema LEs NEURO: alert/oriented, no altered mental status Results Labs on day of discharge: Labs from last 24 hours 09/23/20 06:21 Hgb 13.7 Hct 40.5 DS: Diagnosis - Discharge Diagnosis (1) 38 weeks gestation of Status: Acute (2) Gestational hypertension Status: Acute (3) Short interval between pregnancies affecting , antepartum Status: Acute Discharge Plan - Patient Discharge Instructions ACTIVITY: Continue current activity DIET: regular diet Patient Instructions: DI for Hemorrhage, Depression, DI for Labor and Delivery, Vaginal , DI for Pre-eclampsia, [facility] Post Discharge Instructions, Preventing the Spread of Coronavirus Discharge Instructions - Follow up Plan Follow up with: Gina Allan MD [Staff Physician] - Disposition: Home, Self-Care Prescriptions/Medication Reconciliation: New Ibuprofen [Motrin 400mg tablet] 800 mg PO Q6HP PRN tablet PRN Reason: Mild To Moderate Pain Acetaminophen [Acetaminophen 325mg tab] 650 mg PO Q4HP PRN tablet PRN Reason: Mild Pain - Problem Reconciliation Problems Reviewed?: Yes
== END 2020-09-23 17:03 | disposition home or self-care (01) | DRG 807 ==
PROVIDERS: Admitting Provider Obstetrics & Gynecology; PCP Family Medicine; Visit Provider Obstetrics & Gynecology
DX: O13.3 Gestational [pregnancy-induced] hypertension without significant proteinuria, third trimester (principal); Z37.0 Single live birth; Z3A.38 38 weeks gestation of pregnancy; O70.1 Second degree perineal laceration during delivery
CPT/HCPCS: 59409; 59025; 80305; 81001; 85014; 85018; 85025; 86328; 86850; 87086; C1758; J0595

== ENCOUNTER 2020-10-30 19:49 | Inpatient (IN) | payer OTHER, SELFPAY ==
[2020-10-30 20:02] VITALS: BP 175/106; PULSE 137; RESP 22; TEMP 37.9; O2SAT 98; BMI 29.6
--- NOTE | 2020-10-30 20:15 | CT_ITS ---
PROCEDURE: CT LUMBAR SPINE W CON CLINICAL HISTORY: Pain at Epidural site COMPARISON: No exams were available for comparison TECHNIQUE: Axial images obtained with sagittal and coronal reformats. All CT scans at the facility use one or more dose reduction, viz: automated exposure control, ma/kV adjustment per patient size (including targeted exams where dose is matched to indication, i.e. head), or iterative reconstruction technique. FINDINGS: No fracture or dislocation. There is mild degenerative disc disease in the lower thoracic and upper lumbar spine. Mild posterior disc bulge at L5-S1. Trace free fluid in the pelvis with mild presacral edema. Prominent uterus with adnexal varices. Mild left pelvic and inguinal adenopathy with mildly enlarged hyperattenuating left iliac nodes and inguinal nodes Dilated in thrombosed left common iliac, external iliac and internal iliac veins with extension into the common femoral vein and proximal profundus femora is vein. There is surrounding edema and inflammatory change around these thrombosed venous structures with stranding of the fat in the pelvis and left inguinal region. There is mild thickening of the urinary bladder. IMPRESSION: 1. No acute fracture. 2. Deep venous thrombosis/thrombophlebitis in the left pelvis and groin with surrounding edema/inflammatory changes in the pelvis on the left and in the left groin and mild adenopathy. 3. Post gravid uterus with prominent periuterine veins Dictated by: Sam Lorenzo MD 10/31/2020 10:10 Sam Lorenzo MD in [place] 10/31/2020 10:10
[2020-10-30 20:30] VITALS: BP 126/76; PULSE 118; RESP 17; O2SAT 100
--- NOTE | 2020-10-30 20:48 | HMH.EDGENADL ---
ED Disposition Clinical Impression: DVT (deep venous thrombosis) Qualifiers: DVT location: lower extremity Affected thrombotic vein of extremity: femoral Chronicity: acute Laterality: left Qualified Code(s): I82.412 - Acute embolism and thrombosis of left femoral vein Disposition: Admitted As Inpatient Condition on Discharge: Serious Referrals: Max Hurtado MD [Primary Care Provider] - - Critical Care Critical Care Time: No Attestation: On 10/30/20, the high probability of a clinically significant, sudden or life threatening deterioration of the following system(s) required my full and direct attention, intervention and personal management. The time I documented below is in addition to time spent performing reported procedures but includes the following listed in this critical care notation. Medical Decision Making - Medical Records Medical records reviewed: Yes: I reviewed the patient's medical records. - Neymar Inquiry Pt receiving controlled substance: No Vital Signs: 10/30/20 20:02 10/30/20 20:30 10/30/20 21:00 Temperature 100.2 F H Temperature Source Oral Pulse Rate [Right] 137 H 118 H 134 H Respiratory Rate 22 17 16 Blood Pressure [Right Arm] 175/106 H 126/76 133/85 Blood Pressure Mean [Right Arm] 129 92 101 Blood Pressure Source [Right Arm] Automatic Cuff Automatic Cuff Automatic Cuff Blood Pressure Position [Right Arm] Sitting Supine Supine 02 Sat by Pulse Oximetry 98 100 98 Oxygen Delivery Method Room Air Room Air Room Air 10/30/20 21:30 Temperature Temperature Source Pulse Rate [Right] 118 H Respiratory Rate 17 Blood Pressure [Right Arm] 145/84 H Blood Pressure Mean [Right Arm] 104 Blood Pressure Source [Right Arm] Automatic Cuff Blood Pressure Position [Right Arm] Supine 02 Sat by Pulse Oximetry 99 Oxygen Delivery Method Room Air - Lab Data Lab results reviewed: Yes: I reviewed the patient's lab results. Lab Results 10/30/20 20:30: WBC 10.2, RBC 4.48, Hgb 13.4, Hct 40.5, MCV 90.4, MCH 30.0, MCHC 33.1, RDW 13.1, Plt Count 298, MPV 7.9, Neut % (Auto) 74.7, Lymph % (Auto) 18.5, [place] % (Auto) 5.3, Eos % (Auto) 1.1, Baso % (Auto) 0.4, Neut # (Auto) 7.6, Lymph # (Auto) 1.9, Wet[place] # (Auto) 0.5, Eos # (Auto) 0.1, Baso # (Auto) 0.0, ESR 94 H 10/30/20 20:30: Sodium 139, Potassium 3.9, Chloride 101, Carbon Dioxide 29, Anion Gap 12.9, BUN 8, Creatinine 0.70, Estimated Creat Clear 176, Estimated GFR 105, Est GFR ( Amer) 127, Glucose 117 H, Calcium 9.4, Total Bilirubin 0.6, AST 41 H, ALT 55, Alkaline Phosphatase 142 H, C-Reactive Protein 290.5 H, Total Protein 8.6 H, Albumin 4.3, Globulin 4.3 H, Albumin/Globulin Ratio 1.0 L, Procalcitonin 0.118 10/30/20 20:30: Lactate 0.9 10/30/20 20:30: Serum HCG, Qual Negative 10/30/20 20:30: SARS-CoV-2 IgG Ab (Rapid) Negative, SARS-CoV-2 IgM Ab (Rapid) Negative 10/30/20 20:30: PT 12.7 H, INR 1.16 H, APTT 28.7 Result diagrams: 10/30/20 20:30 10/30/20 20:30 Orders (Tests/Meds): ED MEDICATIONS Generic Name Dose Route Start Last Admin Trade Name Freq PRN Reason Stop Dose Admin Sodium Chloride 1,000 mls @ 999 mls/hr 10/30/20 20:15 10/30/20 20:39 Sod Chlor 0.9% 1000ml Bag IV 10/30/20 21:15 999 mls/hr .[id number] BRADY Administration Heparin Sodium/Dextrose 500 mls @ 30 mls/hr 10/30/20 23:00 10/30/20 22:56 Heparin 25,000 Units In D5w 500ml Premix IV 11/29/20 22:59 30 mls/hr .[id number] BRADY Administration 1,500 UNITS/HR Sodium Chloride 10 ml 10/30/20 21:54 10/30/20 21:45 Sodium Chloride 0.9% 10ml Syr (Rad Only) IV 11/29/20 21:53 10 ml NEEDED PRN Administration Maintain IV Site Discontinued Medications Generic Name Dose Route Start Last Admin Trade Name Freq PRN Reason Stop Dose Admin Acetaminophen 1,000 mg 10/30/20 20:15 10/30/20 20:39 Acetaminophen 500mg Tab PO 10/30/20 20:16 1,000 mg ONCE ONE Administration Heparin Sodium (Porcine) 5,000 unit 10/30/20 22:50 10/30/20 22:55 Hepari
[2020-10-30 20:55] LABS: Basophils % 0.4 % (0.1-2.0); Eosinophils # 0.1 K/mm3 (0.0-0.4); Eosinophils % 1.1 % (0.1-12.0); Hematocrit 40.5 % (37.0-47.0); Hemoglobin 13.4 g/dL (12.2-16.2); Lymphocytes # 1.9 K/mm3 (0.7-4.5); Lymphocytes % 18.5 % (10-50); Mean Corpuscular HGB Conc 33.1 g/dL (31.8-35.4); Mean Corpuscular Volume 90.4 fl (81-99); Mean Platelet Volume 7.9 fl (7.4-10.4); Monocytes # 0.5 K/mm3 (0.1-1.0); Monocytes % 5.3 % (1.7-9.3); Neutrophils # 7.6 K/mm3 (1.8-7.8); Neutrophils % 74.7 % (37.0-80.0); Platelet Count 298 K/mm3 (142-424); Red Blood Count 4.48 M/mm3 (4.20-5.40); Red Cell Distribution Width 13.1 % (11.5-17.5); White Blood Count 10.2 K/mm3 (4.8-10.8)
--- NOTE | 2020-10-30 20:58 | CT_ITS ---
PROCEDURE: CT HIP LT W CON CLINICAL HISTORY: pain to left hip with redness, redness and swelling of the left hip COMPARISON: CT CT ABDOMEN PELVIS W CON from 11/17/2019 TECHNIQUE: Axial images obtained with sagittal and coronal reformats. All CT scans at the facility use one or more dose reduction, viz: automated exposure control, ma/kV adjustment per patient size (including targeted exams where dose is matched to indication, i.e. head), or iterative reconstruction technique. FINDINGS: Extensive DVT is present in the left pelvis and left lower extremity with occlusive thrombus extending throughout the left tunnel iliac vein, external iliac vein, left common femoral vein and likely in the left superficial femoral vein and profundus femoral vein. There is deep soft tissue swelling surrounding the deep veins at the left groin and in the pelvis. No loculated fluid collections. No acute bony findings. The superficial soft tissues have an unremarkable appearance. IMPRESSION: Extensive deep venous thrombosis involving the entire left common iliac vein, external iliac vein, common femoral vein, and likely extending into the superficial femoral vein and profundus femora some with prominent soft tissue swelling and edema and fluid surrounding the thrombosed veins in the pelvis and left groin Dictated by: Sam Lorenzo MD 10/31/2020 09:51 Sam Lorenzo MD in [facility] 10/31/2020 09:51
[2020-10-30 21:00] VITALS: BP 133/85; PULSE 134; RESP 16; O2SAT 98
[2020-10-30 21:07] LABS: Alanine Aminotransferase 55 U/L (12-78); Albumin Level 4.3 g/dl (3.5-5.0); Alkaline Phosphatase 142 U/L (38-126); Anion Gap 12.9 mEq/L (5-15); Aspartate Amino Transferase 41 U/L (14-36); Bilirubin,Total 0.6 mg/dl (0.2-1.3); Blood Urea Nitrogen 8 mg/dl (7-17); Calcium 9.4 mg/dl (8.4-10.2); Carbon Dioxide 29 mmol/L (22.0-30.0); Chloride 101 mmol/L (98-107); Creatinine Clearance Estimated 176 mL/min (50-200); Estimated Glomerular Filt Rate 105 ml/min (>60); GFR (African American) 127 ML/MIN (>60); Globulin 4.3 g/dL (1.3-3.2); Glucose 117 mg/dl (74-100); Potassium 3.9 mmoL/L (3.5-5.1); Sodium 139 mmol/L (136-145); Total Protein,Serum 8.6 g/dl (6.3-8.2)
[2020-10-30 21:08] LABS: Lactic Acid 0.9 mmol/L (0.7-2.1)
[2020-10-30 21:12] LABS: C-Reactive Protein 290.5 mg/L (0-4)
[2020-10-30 21:16] LABS: Coronavirus 19 IgG Antibody Negative (Negative); Coronavirus 19 IgM Antibody Negative (Negative)
[2020-10-30 21:18] LABS: HCG Qualitative, Serum Negative (Negative)
[2020-10-30 21:19] LABS: Erythrocyte Sedimentation Rate 94 mm/hr (0-20)
[2020-10-30 21:26] LABS: Procalcitonin 0.118 ng/mL (0.0-2.0)
[2020-10-30 21:30] VITALS: BP 145/84; PULSE 118; RESP 17; O2SAT 99
[2020-10-30 22:42] LABS: Activated Partial Thrombo Time 28.7 seconds (23.6-34.0); INR 1.16 (0.9-1.1); Prothrombin Time 12.7 seconds (9.4-11.8)
--- NOTE | 2020-10-30 22:51 | PC.NURSE ---
spoke with Royce from pharmacy for heparin dosage. 5,000 unit bolus 1500 unit per hr repeat PT/INR in 6 hrs
[2020-10-31] VITALS (9 sets, daily range): BP systolic 121–141; BP diastolic 67–90; PULSE 87–109; RESP 16–18; TEMP 36.8–37.3; O2SAT 96–99; BMI 31.1
--- NOTE | 2020-10-31 01:25 | PC.NURSE ---
patient up to floor via wheelchair.
[2020-10-31 07:11] LABS: Anion Gap 14.6 mEq/L (5-15); Blood Urea Nitrogen 8 mg/dl (7-17); Calcium 9.2 mg/dl (8.4-10.2); Carbon Dioxide 26 mmol/L (22.0-30.0); Chloride 102 mmol/L (98-107); Creatinine Clearance Estimated 216 mL/min (50-200); Estimated Glomerular Filt Rate 125 ml/min (>60); GFR (African American) 151 ML/MIN (>60); Glucose 114 mg/dl (74-100); Potassium 3.6 mmoL/L (3.5-5.1); Sodium 139 mmol/L (136-145)
[2020-10-31 07:18] LABS: Basophils % 0.4 % (0.1-2.0); Eosinophils # 0.1 K/mm3 (0.0-0.4); Eosinophils % 1.5 % (0.1-12.0); Hematocrit 38.5 % (37.0-47.0); Lymphocytes # 1.8 K/mm3 (0.7-4.5); Lymphocytes % 20.2 % (10-50); Mean Corpuscular HGB Conc 33.9 g/dL (31.8-35.4); Mean Corpuscular Hemoglobin 30.7 pg (27.0-31.2); Mean Corpuscular Volume 90.4 fl (81-99); Mean Platelet Volume 8.9 fl (7.4-10.4); Monocytes # 0.7 K/mm3 (0.1-1.0); Monocytes % 7.7 % (1.7-9.3); Neutrophils # 6.3 K/mm3 (1.8-7.8); Neutrophils % 70.3 % (37.0-80.0); Platelet Count 262 K/mm3 (142-424); Red Blood Count 4.26 M/mm3 (4.20-5.40); Red Cell Distribution Width 13.2 % (11.5-17.5)
--- NOTE | 2020-10-31 08:00 | CA_ITS ---
APPROVED REPORT EXAM: Comprehensive 2D, Doppler, and color-flow Echocardiogram [employer] Consultant: Catarino RCS, RVS Ht: 5 ft 8 in Wt: 205lbs BSA: 2.07 BP: 110/70 mmHg Indications: 6weeks, DVT 2D Dimensions LVOT 2.01 cm (M/F) 1.5-2.5 M-Mode Dimensions RVDd 2.61 cm (0.9-2.6) LA Diam 2.81 cm (1.9-4.0) LVDd 5.46 cm (3.5-5.7) Ao Diam 2.95 cm (2.0-3.7) LVDs 3.83 cm (3.5-5.7) IVSd 0.91 cm (0.6-1.1) PWd 0.94 cm (0.6-1.1) EF (Teich) 61.20% EPSs 0.50 cm FS 33.10% EDV (Teich) 131.20 mL ESV (Teich) 50.90 mL LV Diastology E Decel Time 230.00 (160-240 msec) E/A Ratio 1.11 MED E' 8.60 (< 7 cm/sec) MED A' 8.20 cm/s E'/MED E' Ratio 7.98 (>14) LAT E' 9.00 (<10 cm/sec) LAT A' 7.40 cm/s E/LAT E' Ratio 7.62 (>14) Aortic Valve AO Peak GR. 10.50 mmHg Mitral Valve MV E Max Sebastian. 69.00 (40-130 cm/s) MV A Velocity 62.00 (40-130 cm/s) E/A Ratio 1.11 MV Decel. Time 230.00 (160-240 ms) MV PHT 67.00 ms Pulmonary Valve PV Peak Velocity 83.00 (50-150 cm/s) WI End VMAX 151.00 cm/s Tricuspid Valve TR P. Velocity 185.00 cm/s RAP Estimate 10.00 mmHg RVSP 23.70 mmHg Left Ventricle Technically difficult study because of the patient factors and poor acoustic windows. Left atrium is normal size, left ventricle is normal size, visually estimated ejection fraction 50% with no obvious regional wall motion abnormality. Diastolic parameters are within normal range. Right Ventricle Right atrium and right ventricle are normal size and contractility. Aortic Valve Aortic valve is grossly normal, there is no aortic stenosis or aortic insufficiency. Mitral Valve Mitral valve is grossly normal, there is trace mitral regurgitation. Tricuspid Valve Tricuspid valve grossly normal, there is no significant tricuspid regurgitation to calculate right ventricular systolic pressure. Pulmonic Valve Pulmonic valve is poorly visualized. Great Vessels Aortic root is normal size. Pericardium No significant pericardial effusion noted. Conclusion 1. Normal left ventricular size, preserved left ventricular systolic function, visually estimated ejection fraction 50% with no regional wall motion abnormality, diastolic parameters are within normal range. 2. Trace mitral and tricuspid regurgitation. 3. No significant pericardial effusion noted. Electronically signed by : Harry De La Paz, 11/01/2020 05:24:30
--- NOTE | 2020-10-31 08:04 | P.CONPHA_ITS ---
[facility] Pharmacy VTE Monitoring - Patient Demographics Admission date: 10/31/20 Report Date: 10/31/20 Time: 08:05 Allergies/Adverse Reactions: Patient Allergies No Known Allergies Allergy (Verified 09/20/20 14:23) Height: 1.73 m Weight: 93.071 kg Patient Problems: Current Active Problems DVT (deep venous thrombosis) (Acute) - VTE Risk Labs: VTE Related Lab Results Hgb 13.0 g/dL (12.2-16.2) 10/31/20 05:55 Hct 38.5 % (37.0-47.0) 10/31/20 05:55 Plt Count 262 K/mm3 (142-424) 10/31/20 05:55 PT 12.7 seconds (9.4-11.8) H 10/30/20 20:30 INR 1.16 (0.9-1.1) H 10/30/20 20:30 APTT 28.7 seconds (23.6-34.0) 10/30/20 20:30 BUN 8 mg/dl (7-17) 10/31/20 05:55 Creatinine 0.60 mg/dl (0.52-1.04) 10/31/20 05:55 Estimated Creat Clear 216 mL/min (50-200) 10/31/20 05:55 Clinical Trial Participant: No - Prophylaxis VTE Prophylaxis Ordered?: Yes Types of VTE Prophylaxis: TEDS Knee High
--- NOTE | 2020-10-31 08:14 | P.CONPHA_ITS ---
[facility] Pharmacy Heparin Dosing - Demographic Data Admission date:: 10/31/20 Date: 10/31/20 Time: 08:15 Allergies/Adverse Reactions: Allergies Allergy/AdvReac Type Severity Reaction Status Date / Time No Known Allergies Allergy Verified 09/20/20 14:23 Height: 93 cm Weight: 173 kg - Indication Medication therapy:: Heparin Patient Problems: Current Active Problems DVT (deep venous thrombosis) (Acute) CVA?: No Bleeding problem?: No Kidney disease?: No NC?: No Desired PTT range:: 60-80 seconds - Labs Anticoagulation Lab Results:: 10/30/20 10/31/20 20:30 05:55 Hgb 13.4 13.0 Hct 40.5 38.5 Plt Count 298 262 - Monitoring Dose Monitor 1 Date: 10/30/20 Time: 20:30 PTT Result:: 28.7 Infusion Rate:: 1500 UNITS/HR (30 ML/HR); 5000 UNIT BOLUS Dose Monitor 2 Date: 10/31/20 Time: 05:55 PTT Result:: PTT 31.5 Infusion Rate:: REBOLUS AT 5000 UNITS AND INCREASE DOSE TO 1700 UNITS/HR (34 ML/HR) Dose Monitor 3 Date: 10/31/20 Time: 14:17 PTT Result:: REBOLUS AT HEPARIN 7000 UNITS AND INCREASE DOSE TO 2200 UNITS/HR (44 ML/HR). Infusion Rate:: PTT 39.2 Dose Monitor 4 Date: 10/31/20 Time: 17:55 PTT Result:: PTT 102.9 Infusion Rate:: CONTINUE WITH HEPARIN 2200 UNITS/HR (44 ML/HR) AND RECHECK IN 1.5 HRS IF PATIENT HAS NOT TRANSFERRED TO [facility]. Dose Monitor 5 Date: 10/31/20 Time: 19:50 PTT Result:: PTT 64.3 Infusion Rate:: INCREASE HEPARIN TO 2400 UNITS/HR (48 ML/HR) AND RECHECK IN 1.5 HRS IF PATIENT HAS NOT BEEN TRANSFERRED YET. Comment:: PATIENT TRANSFERRED ~2130 - Core Measures Is INR > or = 2 at discharge?: No Most Recent Labs:: Laboratory Results - last 24 hr 10/30/20 20:30: WBC 10.2, RBC 4.48, Hgb 13.4, Hct 40.5, MCV 90.4, MCH 30.0, MCHC 33.1, RDW 13.1, Plt Count 298, MPV 7.9, Neut % (Auto) 74.7, Lymph % (Auto) 18.5, Archuleta % (Auto) 5.3, Eos % (Auto) 1.1, Baso % (Auto) 0.4, Neut # (Auto) 7.6, Lymph # (Auto) 1.9, Archuleta # (Auto) 0.5, Eos # (Auto) 0.1, Baso # (Auto) 0.0, ESR 94 H 10/30/20 20:30: Sodium 139, Potassium 3.9, Chloride 101, Carbon Dioxide 29, Anion Gap 12.9, BUN 8, Creatinine 0.70, Estimated Creat Clear 176, Estimated GFR 105, Est GFR ( Amer) 127, Glucose 117 H, Calcium 9.4, Total Bilirubin 0.6, AST 41 H, ALT 55, Alkaline Phosphatase 142 H, C-Reactive Protein 290.5 H, Total Protein 8.6 H, Albumin 4.3, Globulin 4.3 H, Albumin/Globulin Ratio 1.0 L, Procalcitonin 0.118 10/30/20 20:30: Lactate 0.9 10/30/20 20:30: Serum HCG, Qual Negative 10/30/20 20:30: SARS-CoV-2 IgG Ab (Rapid) Negative, SARS-CoV-2 IgM Ab (Rapid) Negative 10/30/20 20:30: PT 12.7 H, INR 1.16 H, APTT 28.7 10/31/20 05:55: WBC 9.0, RBC 4.26, Hgb 13.0, Hct 38.5, MCV 90.4, MCH 30.7, MCHC 33.9, RDW 13.2, Plt Count 262, MPV 8.9, Neut % (Auto) 70.3, Lymph % (Auto) 20.2, Archuleta % (Auto) 7.7, Eos % (Auto) 1.5, Baso % (Auto) 0.4, Neut # (Auto) 6.3, Lymph # (Auto) 1.8, Archuleta # (Auto) 0.7, Eos # (Auto) 0.1, Baso # (Auto) 0.0 10/31/20 05:55: Sodium 139, Potassium 3.6, Chloride 102, Carbon Dioxide 26, Anion Gap 14.6, BUN 8, Creatinine 0.60, Estimated Creat Clear 216, Estimated GFR 125, Est GFR ( Amer) 151, Glucose 114 H, Calcium 9.2 Were Heparin and Warfarin started on the same day?: No If not, why?: TRANSFERRED
[2020-10-31 09:21] LABS: Activated Partial Thrombo Time 31.5 seconds (23.6-34.0); INR 1.16 (0.9-1.1); Prothrombin Time 12.7 seconds (9.4-11.8)
--- NOTE | 2020-10-31 09:22 | HMH.HP ---
*Admission Date: 10/31/20 <PamelaIrais 10/31/20 09:53> *Chief complaint: left leg pain <Irais Santiago 10/31/20 13:12> *History of present illness: Dodie Meeks is a 20-year-old female who is normally healthy and is 1 month who presented to [facility] with severe left leg pain starting at the hip all the way down her leg. She Also noted a discoloration of her leg along with edema. She denies chest pain and shortness of breath. She is a 2 para 2. She is bottle feeding. With evaluation in the emergency room she was found to have an extensive blood clot in the pelvic and thigh areas as per the followint report: IMPRESSION: Extensive deep venous thrombosis involving the entire left common iliac vein, external iliac vein, common femoral vein, and likely extending into the superficial femoral vein and profundus femora some with prominent soft tissue swelling and edema and fluid surrounding the thrombosed veins in the pelvis and left groin In the ER she was also noted to have a temp of 100.2 and elevated blood pressure. She was given IV fluid bolus and started on a heparin drip. Also ordered were the labs Antithrombin III, factor V Leiden mutation, protein C and protein S antigens which are pending. She was then admitted for ongoing anticoagulation. At the time of this a.m. patient still has some discomfort in her left leg. She is tired and has not slept. She is not eating and just does not have an appetite. <Irais Santiago 10/31/20 13:12> [facility] History Medical History: Denies:: Cancer, Diabetes Mellitus Type 1, Diabetes Mellitus Type 2, MRSA, Seizures <Irais Santiago 10/31/20 09:53> *Have you ever received a pneumonia vaccine?: Yes <Irais Santiago 10/31/20 09:53> *Have you received a flu vaccine this season?: Yes <Irais Santiago 10/31/20 09:53> Other Medical History: Denies: Blood Transfusion Reaction <Irais Santiago 10/31/20 09:53> Other Surgeries: Yes: Cholecystectomy. No: <Irais Santiago 10/31/20 09:53> Amputation: No <PamelaIrais 10/31/20 09:53> Fractures: No <Santiago,Irais 10/31/20 09:53> - *Social History Last grade of school completed: Some college <Irais Santiago 10/31/20 09:53> Smoking Status: Former smoker <Santiago,Irais 10/31/20 09:53> Alcohol Intake: never <Irais Santiago 10/31/20 09:53> Alcohol Intake Frequency:: other <PamelaIrais 10/31/20 09:53> Substance Use Type: denies use <PamelaIrais 10/31/20 09:53> *Occupational Status:: unemployed <Irais Santiago 10/31/20 09:53> Housing: house <Irais Santiago 10/31/20 09:53> Household Members: spouse, children <Irais Santiago 10/31/20 09:53> *Travel in the last 8 weeks: None <Irais Santiago 10/31/20 09:53> Family Hx:: Cancer <Santiago,Irais 10/31/20 09:53> Review of Systems - Constitutional Denies chills, Denies fatigue, Denies lack of energy <Irais Santiago 10/31/20 09:53> - Eyes Reports requires corrective lenses, Denies change in vision <Irais Santiago 10/31/20 09:53> - ENT Denies ear pain, Denies sore throat <Irais Santiago 10/31/20 09:53> - *Cardiovascular Reports leg swelling (Left leg), Denies chest pain, Denies shortness of breath, Denies shortness of breath with activity <Irais Santiago 10/31/20 09:53> - *Respiratory Denies chest congestion, Denies cough, Denies shortness of breath <Irais Santiago 10/31/20 09:53> - *Gastrointestinal Denies abdominal pain, Denies change in stools, Denies nausea, Denies vomiting <Irais Santiago 10/31/20 09:53> - *Genitourinary Denies difficulty urinating <Irais Santiago 10/31/20 09:53> - *Musculoskeletal Reports abnormal walking, Reports joint pain (left hip) <Irais Santiago 10/31/20 13:12> Comments: pain in left leg from the foot to the groin <Irais Santiago 10/31/20 13:12> - *Neurologic Denies confusion, Denies headache(s), Denies seizure-like activity <Irais Santiago
--- NOTE | 2020-10-31 14:14 | HMH.CNCARD ---
History of Present Illness Consult date: 10/31/20 Requesting physician: Max Hurtado Chief complaint: DVT Additional Medical History:: 1. Extensive deep vein thrombosis in the pelvic, tight area and left lower extremity. (10/31/20) a. One month ( 2, para 2) History of present illness: 20-year-old female presented to [facility] with increased left lower extremity pain. Patient stated she is 1 month in which it was a natural . Patient stated for the past few days she has noticed that her left lower extremity has been swelling with increased pain. Patient stated very hard for her to walk due to the extreme pain of the left lower extremity. Patient denies chest pain, tightness or pressure. Patient denies shortness of breath. Left lower extremity noted as swollen. Left pedal pulse palpable. Left lower extremity noted with discoloration especially around the toes. Patient is noted to be on a heparin drip per PCP. This will continue to be managed by PCP. CT scan of left hip: IMPRESSION: Extensive deep venous thrombosis involving the entire left common iliac vein, external iliac vein, common femoral vein, and likely extending into the superficial femoral vein and profundus femora some with prominent soft tissue swelling and edema and fluid surrounding the thrombosed veins in the pelvis and left groin Preliminary echocardiogram was obtained. Cardiac arrhythmia was noted with a normal EF of 55%. Trace of TR and MR. Trivial pericardial effusion noted. Awaiting official reading. ESR 94 and C-reactive protein 290.5. Discussed plan of care with Dr. Maher and Dr. Hurtado. It is recommended to have patient transferred to a tertiary facility for the extensive deep vein thrombosis for possible evacuation of the thrombosis. Dr. Hurtado did speak with patient regarding this. Patient and are agreeable to have patient transferred to a facility. Thank you for letting cardiology participate in the care of this patient [facility] History I have reviewed the patient's past medical history: Yes Medical History: Denies:: Cancer, Diabetes Mellitus Type 1, Diabetes Mellitus Type 2, MRSA, Seizures *Have you ever received a pneumonia vaccine?: Yes *Have you received a flu vaccine this season?: Yes Other Medical History: Denies: Blood Transfusion Reaction Other Surgeries: Yes: No Previous Surgery, Cholecystectomy. No: Amputation: No Fractures: No - *Social History Last grade of school completed: Some college Smoking Status: Former smoker Alcohol Intake: never Alcohol Intake Frequency:: other Substance Use Type: denies use *Occupational Status:: unemployed Housing: house Household Members: spouse, children *Travel in the last 8 weeks: None Family Hx:: Cancer Meds Home Medications Medication Instructions Recorded Confirmed Type No Known Home Medications 10/30/20 10/30/20 History Allergies Allergy/AdvReac Type Severity Reaction Status Date / Time No Known Allergies Allergy Verified 09/20/20 14:23 Exam Vital signs and Labs for Last 24 Hours: Temp Pulse Resp BP Pulse Ox 98.4 F 109 H 18 141/89 H 98 10/31/20 08:00 10/31/20 08:00 10/31/20 08:00 10/31/20 08:00 10/31/20 08:00 Laboratory Results - last 24 hr 10/30/20 20:30: WBC 10.2, RBC 4.48, Hgb 13.4, Hct 40.5, MCV 90.4, MCH 30.0, MCHC 33.1, RDW 13.1, Plt Count 298, MPV 7.9, Neut % (Auto) 74.7, Lymph % (Auto) 18.5, Towner % (Auto) 5.3, Eos % (Auto) 1.1, Baso % (Auto) 0.4, Neut # (Auto) 7.6, Lymph # (Auto) 1.9, Towner # (Auto) 0.5, Eos # (Auto) 0.1, Baso # (Auto) 0.0, ESR 94 H 10/30/20 20:30: Sodium 139, Potassium 3.9, Chloride 101, Carbon Dioxide 29, Anion Gap 12.9, BUN 8, Creatinine 0.70, Estimated Creat Clear 176, Estimated GFR 105, Est GFR ( Amer) 127, Glucose 117 H, Calcium 9.4, Total Bilirubin 0.6, AST 41 H, ALT 55, Alkaline Phosphatase 142 H, C-Reactive Protein 290
[2020-10-31 15:34] LABS: Activated Partial Thrombo Time 39.2 seconds (23.6-34.0)
--- NOTE | 2020-10-31 16:38 | PC.NURSE ---
1600 RN reassessment completed. Pt has dozed at intervals since received PRN dilaudid. Pt reports that pain is now a 3 on a 0-10 scale, reports that this is tolerable for her. A & O X4. Lung sounds CTA with no s/s distress, no c/o SOA. Abd soft and nontender with BS active in all quads. Pt reports voiding without any difficulty. Peripads provided to pt as she is and reports small amount of vaginal bleeding. MD has rounded and does plan to transfer pt to tertiary facility, pt and her s/o are aware of this and agreeable with POC. 18g to RAC infusing heparin infusion without difficulty. Pt denies any needs/concerns at the present time, call light within reach. Will continue to monitor.
[2020-10-31 18:34] LABS: Activated Partial Thrombo Time 102.9 seconds (23.6-34.0)
[2020-10-31 20:13] LABS: Activated Partial Thrombo Time 64.3 seconds (23.6-34.0)
--- NOTE | 2020-10-31 21:27 | PC.NURSE ---
PT BEING TRANSFERRED VIA STRETCHER WITH EMS AT 2126.
--- NOTE | 2020-10-31 23:11 | PC.NURSE ---
2014- Wan Chaudhry, pharmacist contacted this RN regarding pt. aPtt levels: 62; received orders to change rate of heparin gtt to 48 ml/hr. 2015- changed heparin rate to above order 2020- contacted [facility] regarding need for pt. to be transferred to [facility] 2125- EMS crew given report and pt. has been transferred off of the unit at this time; pt. stable 2128- Contacted Yudelka Cole RN at [facility] for handoff report
--- NOTE | 2020-11-01 15:06 | HMH.DCSUM ---
General - General Admission date:: 10/31/20 <Max Hurtado - 11/22/20 12:42> 10/31/20 <Christina Castro - 11/01/20 15:10> Discharge date: 10/31/20 <Christina Castro - 11/01/20 15:10> HPI HPI: Dodie Meeks is a 20-year-old female who is normally healthy and is 1 month who presented to [facility] with severe left leg pain starting at the hip all the way down her leg. She Also noted a discoloration of her leg along with edema. She denies chest pain and shortness of breath. She is a 2 para 2. She is bottle feeding. With evaluation in the emergency room she was found to have an extensive blood clot in the pelvic and thigh areas as per the followint report: IMPRESSION: Extensive deep venous thrombosis involving the entire left common iliac vein, external iliac vein, common femoral vein, and likely extending into the superficial femoral vein and profundus femora some with prominent soft tissue swelling and edema and fluid surrounding the thrombosed veins in the pelvis and left groin In the ER she was also noted to have a temp of 100.2 and elevated blood pressure. She was given IV fluid bolus and started on a heparin drip. Also ordered were the labs Antithrombin III, factor V Leiden mutation, protein C and protein S antigens which are pending. She was then admitted for ongoing anticoagulation. At the time of this a.m. patient still has some discomfort in her left leg. She is tired and has not slept. She is not eating and just does not have an appetite. <Christina Castro - 11/01/20 15:10> Hospital Course Hospital Course: The patient was admitted and started on a heparin drip. She was also started on IV fluids. Her pain was managed with morphine and cardiology was consulted due to the extent of her DVT for consideration of an IVC filter. Cardiology saw the patient and recommended transfer to tertiary facility for possible evacuation of the left lower extremity thrombosis. She was continued on a heparin drip and a bed was found for her at [facility]. She was transferred for further evaluation and treatment. <Christina Castro - 11/01/20 15:10> Objective Vital signs: Temp Pulse Resp BP Pulse Ox 98.2 F 109 H 16 130/73 98 10/31/20 20:00 10/31/20 20:00 10/31/20 20:00 10/31/20 20:00 10/31/20 20:00 <Max Hurtado - 11/22/20 12:42> Temp Pulse Resp BP Pulse Ox 98.2 F 109 H 16 130/73 98 10/31/20 20:00 10/31/20 20:00 10/31/20 20:00 10/31/20 20:00 10/31/20 20:00 <Christina Castro - 11/01/20 15:10> Narrative: - Constitutional no acute distress, cooperative - *Routine HEENT Exam Head: Present: normocephalic, atraumatic Eye: Present: PERRL. Absent: conjunctival icterus, scleral injection ENT: Present: mucous membranes moist, oropharynx clear, dentition normal - *Routine Neck Exam Absent: supple, carotid bruit, lymphadenopathy, thyromegaly - *Routine Respiratory Exam Present: CTA bilaterally (Anteriorly and posteriorly) - *Routine Cardiovascular Exam Present: RRR. Absent: murmur - *Routine Abdominal Exam Present: soft, normoactive bowel sounds. Absent: tenderness, distended, guarding - *Routine Extremities Exam Present: edema (Left leg from hip to the foot.), pulses intact. Absent: calf tenderness Comments: Mottling of the left leg - *Routine Neurological Exam Present: alert, oriented X3 <Christina Castro - 11/01/20 15:10> Results Labs on day of discharge: Labs from last 24 hours 10/31/20 10/31/20 10/31/20 19:50 17:53 14:17 APTT 64.3 H* D 102.9 H* D 39.2 H D <Christina Castro - 11/01/20 15:10> DS: Diagnosis - Discharge Diagnosis (1) DVT (deep venous thrombosis) Status: Acute <Christina Castro - 11/01/20 15:06> (1) DVT (deep venous thrombosis) Status: Acute <Max Hurtado - 11/22/20 12:42> Discharge Plan - Patient Discharg
[2020-11-02 15:41] LABS: Anti-Thrombin III Antigen 91 % (72-124); Antithrombin Activity 117 % (75-135); Protein S Antigen, Total 123 % (60-150); Protein S, Free 119 % (57-157)
[2020-11-02 17:19] LABS: Protein C Antigen 77 % (60-150)
== END 2020-10-31 21:26 | disposition short-term general hospital (02) | DRG 776 ==
LOC: ER 23:17 → 2ND 23:33
PROVIDERS: Emergency Medicine; Admitting Provider Family Medicine; Emergency Provider Emergency Medicine; PCP Family Medicine; Visit Provider Family Medicine
DX: O87.1 Deep phlebothrombosis in the puerperium (principal); I82.412 Acute embolism and thrombosis of left femoral vein; I82.422 Acute embolism and thrombosis of left iliac vein
CPT/HCPCS: 36415; 72132; 73701; 80048; 80053; 81241; 83605; 84145; 84703; 85025; 85300; 85301; 85302; 85305; 85306; 85610; 85651; 85730; 86140; 86328; 87040; 93306; 96365; 96366; 96367; 96375; 99285; Q9967

== ENCOUNTER → 2020-12-13 15:01 | Outpatient (CLI) | payer OTHER, SELFPAY ==
--- NOTE | 2020-12-13 15:01 | US_ITS ---
PROCEDURE: US TRANSVAGINAL CLINICAL INDICATION: DUB COMPARISON: US US OB TRANSVAGINAL from 02/17/2020 FINDINGS: UTERUS: 10cm x 4cmx 4cm with a combined endometrial thickness of 6.2mm LEFT OVARY: [id number] with a volume of 4.4ml. RIGHT OVARY: [id number] with a volume of 10.6ml. There is bilateral ovarian blood flow with small ovarian cyst. No cul-de-sac fluid. IMPRESSION: Negative pelvic ultrasound Dictated by: Sam Lorenzo MD 12/13/2020 18:36 Sam Lorenzo MD in OV 12/13/2020 18:36
== END ==
PROVIDERS: PCP Family Medicine; Visit Provider Obstetrics & Gynecology
DX: N93.8 Other specified abnormal uterine and vaginal bleeding (principal)
CPT/HCPCS: 76830

== ENCOUNTER → 2021-04-20 14:09 | Outpatient (CLI) | payer OTHER, SELFPAY ==
[2021-04-20 14:57] LABS: D-Dimer 0.27 ug/mL (0.0-0.5)
== END ==
PROVIDERS: Visit Provider Internal Medicine Medical Oncology
DX: Z51.81 Encounter for therapeutic drug level monitoring (principal); Z79.01 Long term (current) use of anticoagulants; Z86.718 Personal history of other venous thrombosis and embolism
CPT/HCPCS: 36415; 85378

== ENCOUNTER → 2022-06-22 11:07 | Outpatient (CLI) | payer OTHER, SELFPAY ==
--- NOTE | 2022-06-22 | CA_ITS ---
FINAL REPORT TECHNIQUE: Color Doppler, duplex Doppler and compression sonography of the left lower extremity deep venous systems was performed. CLINICAL HISTORY: DVT 10/31/20 LEFT ILIAC THRU FEMORAL VEIN. ELIQUIS STOPPED 04/2021. PAIN IN LEFT KNEE FINDINGS: There is no evidence of deep venous thrombosis from the level of the groin to the calf. The veins are patent and compressible. IMPRESSION: No evidence of deep venous thrombosis left lower extremity. Reviewed, Interpreted and Dictated by Humphrey Hernandez III, MD Transcribed by Monster Medina Authenticated and . [facility]
== END ==
PROVIDERS: PCP Family Medicine; Visit Provider Family Medicine
DX: M79.605 Pain in left leg (principal); Z86.718 Personal history of other venous thrombosis and embolism
CPT/HCPCS: 93971

== ENCOUNTER 2023-02-13 09:27 | Emergency (ER) | payer OTHER, SELFPAY ==
[2023-02-13 09:36] VITALS: BP 154/99; PULSE 91; RESP 16; TEMP 37.1; O2SAT 98; BMI 34.2
--- NOTE | 2023-02-13 09:43 | EXP.UTC ---
Discharge Plan Disposition Patient Disposition: Home, Self-Care Condition: Good Prescriptions Prescriptions: New mupirocin 2 % ointment 1 applic topical TID 7 Days Qty: 15 0RF amoxicillin-pot clavulanate 875-125 mg Tablet 1 tab PO Q12H Qty: 20 0RF Referrals Follow up/Referrals: Max Hurtado MD [Primary Care Provider] - See instructions Activity Restrictions/Add. Instructions Additional Instructions/Restrictions: Keep the wounds clean and dry. Keep a dressing on it if you are going to be getting it dirty. Watch the wounds for signs of infection, such as redness, swelling, drainage, fever. etc. Take tylenol or ibuprofen for pain. Follow up with your regular doctor. GO TO THE ER FOR ANY WORSENING SYMPTOMS OR CONCERNS. Make sure you stay in contact with the health department regarding the health of the cat. Clinical Impressions Clinical Impression: Cat bite involving extremity, Need for tetanus, diphtheria, and acellular pertussis (Tdap) vaccine Stand Alone Forms Stand Alone Forms: Work/School Release Instructions Patient Instructions: Animal Bites, DI for Animal Bites, DI for Cat Bite Discharge ED Provider: Javeir Bernabe [facility] [place] General Stated complaint: Cat bite RT knee w/ redness and fevered Time Seen by Provider: 02/13/23 09:43 History of Present Illness Provider Complaint: She states that her inside house cat bit her on her right leg 2 days ago. She is having pain and redness at the site of the wound. Related Data Previous Rx's Medication Instructions Recorded amoxicillin 875 mg-potassium 1 tab PO Q12H #20 tabs 02/13/23 clavulanate 125 mg tablet mupirocin 2 % topical ointment 1 applic topical TID 7 days #15 02/13/23 grams Allergies Allergy/AdvReac Type Severity Reaction Status Date / Time No Known Allergies Allergy Verified 02/13/23 09:49 [facility] Disclaimer: The information contained in this section may have been updated after the patient was seen, as this information can be updated by other users. Social History Smoking Status: Former smoker alcohol intake: never substance use type: denies use current occupational status: unemployed Travel in the last 8 weeks: None household members: spouse and children housing: house ROS Obtained: Yes All systems reviewed & no additional complaints except as documented Constitutional Constitutional: Denies chills and Denies fever(s) Eyes Eyes: Denies eye discharge ENT Ears, Nose, Mouth, and Throat: Denies dizziness, Denies otalgia and Denies sore throat Cardiovascular Cardiovascular: Denies chest pain Respiratory Respiratory: Denies shortness of breath, Denies chest congestion, Denies cough, Denies stridor and Denies wheezing Gastrointestinal Gastrointestingal: Denies nausea or vomiting Musculoskeletal Musculoskeletal: Reports system reviewed and no additional complaints, except as documented and Denies arthralgias Integumentary/Breasts Skin/Breast: Reports as per HPI Neurologic Neurologic: Denies dizziness and Denies paresthesias Allergic/Immunologic Allergic/Immunologic: Denies wheezing Physical Exam General General appearance: alert and in no apparent distress Head Head exam: atraumatic, normocephalic and normal inspection Eye Eye exam: Present normal appearance, PERRL and EOMI ENT ENT exam: Present normal exam, normal oropharynx, mucous membranes moist, TM's normal bilaterally and normal external ear exam Neck Neck exam: Present normal inspection, full ROM and trachea midline; Absent meningismus or lymphadenopathy Chest Chest inspection: Present normal inspection and symmetric chest wall rise; Absent tenderness Respiratory Respiratory exam: Present normal lung sounds bilaterally; Absent respiratory distress Cardiovascular Cardiovascular exam: Present regular rate and normal rhythm; Absent JVD Abdominal Exam Abdominal
[2023-02-13 10:11] VITALS: BP 154/99; PULSE 91; RESP 16; TEMP 37.1
== END 2023-02-13 10:12 | disposition home or self-care (01) ==
PROVIDERS: Emergency Provider Nurse Practitioner Family; PCP Family Medicine
DX: S81.851A Open bite, right lower leg, initial encounter (principal); Z23 Encounter for immunization; Z87.891 Personal history of nicotine dependence; W55.01XA Bitten by cat, initial encounter
CPT/HCPCS: 90471; 90715; 96372; 99204; 99212; G0463

== ENCOUNTER 2023-07-23 11:20 | Emergency (ER) | payer OTHER, SELFPAY ==
[2023-07-23 11:30] VITALS: BP 147/90; PULSE 89; RESP 18; TEMP 37.3; O2SAT 97; BMI 31.1
[2023-07-23 11:57] LABS: Microscopic, Urine URINE MICROSCOPIC (MICROSCOPIC)
--- NOTE | 2023-07-23 12:00 | EXP.UTC ---
Discharge Plan Disposition Patient Disposition: Home, Self-Care Condition: Good Prescriptions Prescriptions: New phenazopyridine [Pyridium] 200 mg tablet 200 mg PO Q8H 2 Days Qty: 6 0RF ciprofloxacin HCl [Cipro] 500 mg tablet 500 mg PO BID 7 Days Qty: 14 0RF Referrals Follow up/Referrals: Max Hurtado MD [Primary Care Provider] - See instructions Activity Restrictions/Add. Instructions Additional Instructions/Restrictions: Drink plenty of fluids. Take tylenol or ibuprofen for pain or fever. Take the medications as directed. Follow up with your regular doctor. GO TO THE ER FOR ANY WORSENING SYMPTOMS The pyridium will make your urine turn orange, this is an expected side effect. It will stain your clothes if it comes into contact with them. We will culture the urine. That will tell what bacteria is causing your infection and which antibiotics will treat it best. Sometimes the first antibiotic we prescribe turns out to not work against different bacteria. So, make sure you follow up within 3 days if you are not getting better. Clinical Impressions Clinical Impression: UTI (urinary tract infection) Instructions Patient Instructions: Urinary Tract Infection, Urine Culture, DI for Urinary Tract Infection (UTI), Phenazopyridine Discharge ED Provider: Javier Bernabe [facility] General Stated complaint: Back pain radiating, pressure when urinating Time Seen by Provider: 07/23/23 12:00 History of Present Illness Provider Complaint: She c/o low back pain, right flank pain and blood in her urine since yesterday. Related Data Previous Rx's Medication Instructions Recorded ciprofloxacin HCl 500 mg tablet 500 mg PO BID 7 days #14 tabs 07/23/23 (Cipro) phenazopyridine 200 mg tablet 200 mg PO Q8H 2 days #6 tabs 07/23/23 (Pyridium) Allergies Allergy/AdvReac Type Severity Reaction Status Date / Time No Known Allergies Allergy Verified 07/23/23 12:01 [facility] Disclaimer: The information contained in this section may have been updated after the patient was seen, as this information can be updated by other users. Social History Smoking Status: Former smoker alcohol intake: never substance use type: denies use current occupational status: unemployed Travel in the last 8 weeks: None household members: spouse and children housing: house ROS Obtained: Yes All systems reviewed & no additional complaints except as documented Constitutional Constitutional: Denies chills and Denies fever(s) Eyes Eyes: Denies eye discharge ENT Ears, Nose, Mouth, and Throat: Denies dizziness, Denies otalgia and Denies sore throat Cardiovascular Cardiovascular: Denies chest pain Respiratory Respiratory: Denies shortness of breath, Denies chest congestion, Denies cough, Denies stridor and Denies wheezing Gastrointestinal Gastrointestingal: Denies nausea or vomiting Musculoskeletal Musculoskeletal: Reports system reviewed and no additional complaints, except as documented and Denies arthralgias Integumentary/Breasts Skin/Breast: Denies rash Neurologic Neurologic: Denies dizziness and Denies paresthesias Allergic/Immunologic Allergic/Immunologic: Denies wheezing Physical Exam General General appearance: alert and in no apparent distress Head Head exam: atraumatic, normocephalic and normal inspection Eye Eye exam: Present normal appearance, PERRL and EOMI ENT ENT exam: Present normal exam, normal oropharynx, mucous membranes moist, TM's normal bilaterally and normal external ear exam Neck Neck exam: Present normal inspection, full ROM and trachea midline; Absent meningismus or lymphadenopathy Chest Chest inspection: Present normal inspection and symmetric chest wall rise; Absent tenderness Respiratory Respiratory exam: Present normal lung sounds bilaterally; Absent respiratory distress Cardiovascular Cardiovascular exam: Pres
[2023-07-23 12:25] LABS: Appearance,Urine CLEAR (Clear); Bilirubin,Urine Negative (Negative); Blood, Urine 2+ (Negative); Color,Urine YELLOW (Yellow); Glucose,Urine (UA) Negative (Negative); Ketones,Urine Negative (Negative); Leukocyte Esterase,Urine Negative (Negative); Nitrate,Urine Negative (Negative); Protein,Urine 1+ (Negative); Specific Gravity, Urine 1.025 (1.005-1.030)
[2023-07-23 12:27] VITALS: BP 147/90; PULSE 89; RESP 18; TEMP 37.3; O2SAT 97
[2023-07-23 12:55] LABS: Bacteria,Urine 1+ /lpf
== END 2023-07-23 12:27 | disposition home or self-care (01) ==
PROVIDERS: Emergency Provider Nurse Practitioner Family; PCP Family Medicine
DX: N39.0 Urinary tract infection, site not specified (principal); B96.29 Other Escherichia coli [E. coli] as the cause of diseases classified elsewhere; M54.59 Other low back pain; Z87.891 Personal history of nicotine dependence
CPT/HCPCS: 81001; 87086; 99212; 99214; G0463